=== PATIENT | male | born 1955 | race Caucasian/White ===

== ENCOUNTER 2017-08-20 08:51 | Inpatient (IN) | payer MEDICARE, OTHER ==
[~2017-08-20] VITALS: Ht 172.7 cm; Wt 121.0 kg
[~2017-08-20 08:51] MED LIST: AMLO5 PO; AMLODIPINE; ASPI325EC PO; ASPI81CH PO; ATEN25 PO; ATEN50; ATOR80 PO; Amiodarone HCl200 MG PO; BRILINTA90 MG PO; BYSTOLIC PO; Bactrim Ds Tab1 EACH PO; CENTRUM SILVER1 EAC2 PO; CEPH500 PO; CLOP75 PO; Crutch1 EACH MISC; DICL25ER; DICL75ER PO; DILT180 PO; ERYT.5TO RIGHTEYE; FISH1000 PO; FURO40 PO; Flomax0.4 MG PO; HYDACE5 PO; Keflex500 MG PO; LINZESS145 MCG PO; LISINOPRIL; LOSA50 PO; METO100ER PO; METO50 PO; METO50ER PO; METPRE4DP PO; MUPIROCIN1 GM TOP; Micro-K10 MEQ; NAPR500 PO; NITR.4SL SL; Naprosyn500 MG PO; Norco 5-325 Ta1 EACH PO; OLME40 PO; ONDA4 PO; OXYACE5T PO; OXYC1TAB11 PO; POTCHL10ER PO; Percocet 10-321 EACH PO; Percocet 5-3251 EACH PO; Prednisone20 MG PO; Robaxin500 MG PO; SPIR25 PO; SULTRIDS PO; TESTONE CI200 MG/1 M IM; TICA90TA; TOBR.3OPSO OP; TRIBENZOR 40-51 EAC1 PO; TRIHYD253B PO; VALS80 PO; VALSARTAN; Valium5 MG PO; WARF2.5 PO; XARELTO15 MG PO; XARELTO20 MG PO; Zofran Odt4 MG PO
[2017-08-20] MEDS ORDERED: GABA400 PO (09:03)
[2017-08-20] MEDS ORDERED: DILT120 PO (09:04)
[2017-08-20] MEDS ORDERED: HYDR10 PO (09:06)
[2017-08-20] MEDS ORDERED: CLOP75 PO (09:07)
[2017-08-20 09:14] LABS: BASOPHILS ABSOLUTE AUTO 0.03 K/mm3 (0.00-0.23); BASOPHILS PERCENT AUTO 0 % (0-2); EOSINOPHILS ABSOLUTE AUTO 0.04 K/mm3 (0.00-0.68); EOSINOPHILS PERCENT AUTO 0 % (0-6); Hematocrit 29.8 % (37.0-53.0); Hemoglobin 9.1 g/dL (13.5-17.5); IMMATURE GRAN ABSOLUTE AUTO 0.53 K/mm3 (0.00-0.10); IMMATURE GRAN PERCENT AUTO 5 % (0-1); LYMPHOCYTES ABSOLUTE AUTO 0.69 K/mm3 (0.84-5.20); LYMPHOCYTES PERCENT AUTO 6 % (21-46); MONOCYTES ABSOLUTE AUTO 0.94 K/mm3 (0.16-1.47); MONOCYTES PERCENT AUTO 8 % (4-13); Mean Corpuscular HGB 30.2 pg (26.0-34.0); Mean Corpuscular HGB Conc 30.5 g/dL (31.5-36.5); Mean Corpuscular Volume 99 fL (80-100); Mean Platelet Volume 11.5 fL (9.1-12.4); NEUTROPHILS ABSOLUTE AUTO 9.07 K/mm3 (1.96-9.15); NEUTROPHILS PERCENT AUTO 80 % (41-73); NRBC ABSOLUTE 0.25 K/mm3 (0.00-0.02); NRBC Auto 2.2 /100 WBC (0.0-0.2); Platelet Count 241 K/mm3 (150-400); RDW Coefficient Variation 16.9 % (11.7-14.2); RDW Standard Deviation 60.8 fL (35.1-46.3); Red Blood Cell Count 3.01 M/mm3 (4.30-5.90)
[2017-08-20 09:31] LABS: Anion Gap 8 mmol/L (6-16); Blood Urea Nitrogen 31 mg/dL (8-24); Bun/Creatinine Ratio 25.4 (12.0-20.0); CO2, Blood 27 mmol/L (21-32); Calcium, Blood 8.1 mg/dL (8.5-10.1); Chloride, Blood 105 mmol/L (98-108); Creatinine, Blood 1.22 mg/dL (0.60-1.20); Glomerular Filtration Rate >60 (60-); Glucose, Blood 231 mg/dL (70-99); Potassium, Blood 4.6 mmol/L (3.5-5.5); Sodium, Blood 140 mmol/L (136-145)
[2017-08-20 16:46] LABS: Hematocrit 27.8 % (37.0-53.0); Hemoglobin 8.6 g/dL (13.5-17.5)
[2017-08-20 18:12] LABS: Source, Urine Catheter
[2017-08-20 18:17] LABS: Appearance, Urine Clear (Clear); Bilirubin, Urine Neg (Neg); Blood, Urine Neg (Neg); Color, Urine Yellow (P-Yellow); Glucose Qualitative, Urine Neg (Neg); Ketones, Urine Neg (Neg); Leukocyte Esterase, Urine Neg (Neg); Nitrite, Urine Neg (Neg); Protein, Urine Neg (Neg); Urobilinogen, Urine NORM (Normal)
[2017-08-20 22:33] LABS: Hematocrit 26.3 % (37.0-53.0); Hemoglobin 8.1 g/dL (13.5-17.5)
[2017-08-21 05:19] LABS: BASOPHILS ABSOLUTE AUTO 0.02 K/mm3 (0.00-0.23); BASOPHILS PERCENT AUTO 0 % (0-2); EOSINOPHILS ABSOLUTE AUTO 0.04 K/mm3 (0.00-0.68); EOSINOPHILS PERCENT AUTO 0 % (0-6); Hematocrit 23.5 % (37.0-53.0); Hemoglobin 7.3 g/dL (13.5-17.5); IMMATURE GRAN ABSOLUTE AUTO 0.52 K/mm3 (0.00-0.10); IMMATURE GRAN PERCENT AUTO 4 % (0-1); LYMPHOCYTES ABSOLUTE AUTO 0.71 K/mm3 (0.84-5.20); LYMPHOCYTES PERCENT AUTO 6 % (21-46); MONOCYTES ABSOLUTE AUTO 1.21 K/mm3 (0.16-1.47); MONOCYTES PERCENT AUTO 10 % (4-13); Mean Corpuscular HGB 29.9 pg (26.0-34.0); Mean Corpuscular HGB Conc 31.1 g/dL (31.5-36.5); Mean Platelet Volume 11.3 fL (9.1-12.4); NEUTROPHILS ABSOLUTE AUTO 9.54 K/mm3 (1.96-9.15); NEUTROPHILS PERCENT AUTO 79 % (41-73); NRBC ABSOLUTE 0.47 K/mm3 (0.00-0.02); NRBC Auto 3.9 /100 WBC (0.0-0.2); Platelet Count 209 K/mm3 (150-400); RDW Standard Deviation 59.3 fL (35.1-46.3); Red Blood Cell Count 2.44 M/mm3 (4.30-5.90); White Blood Cell Count 12.04 K/mm3 (4.00-11.30)
[2017-08-21 05:20] LABS: Mean Corpuscular Volume 96 fL (80-100)
[2017-08-21 05:34] LABS: International Normalized Ratio 1.13; Prothrombin Time Results 11.8 Sec (9.7-11.5)
[2017-08-21 05:39] LABS: Alanine Aminotransfer (ALT/SGP 38 U/L (12-78); Albumin, Blood 2.5 g/dL (3.4-5.0); Albumin/Globulin Ratio 0.9 (0.8-1.8); Alk Phos 71 U/L (50-136); Anion Gap 10 mmol/L (6-16); Aspartate Aminotrans (AST/SGOT 19 U/L (12-37); Bilirubin, Total 0.6 mg/dL (0.1-1.0); Blood Urea Nitrogen 28 mg/dL (8-24); Bun/Creatinine Ratio 25.5 (12.0-20.0); CO2, Blood 25 mmol/L (21-32); Calcium, Blood 8.2 mg/dL (8.5-10.1); Chloride, Blood 105 mmol/L (98-108); Globulin, Blood 2.7 g/dL (2.2-4.0); Glomerular Filtration Rate >60 (60-); Glucose, Blood 181 mg/dL (70-99); Potassium, Blood 4.9 mmol/L (3.5-5.5); Sodium, Blood 140 mmol/L (136-145); Total Protein, Blood 5.2 g/dL (6.4-8.2)
[2017-08-21 10:32] LABS: Hematocrit 24.3 % (37.0-53.0); Hemoglobin 7.4 g/dL (13.5-17.5)
[2017-08-22 10:48] LABS: Hematocrit 21.3 % (37.0-53.0); Hemoglobin 6.5 g/dL (13.5-17.5); Mean Corpuscular HGB 29.5 pg (26.0-34.0); Mean Corpuscular HGB Conc 30.5 g/dL (31.5-36.5); Mean Corpuscular Volume 97 fL (80-100); Mean Platelet Volume 11.2 fL (9.1-12.4); NRBC ABSOLUTE 0.38 K/mm3 (0.00-0.02); NRBC Auto 3.7 /100 WBC (0.0-0.2); Platelet Count 199 K/mm3 (150-400); RDW Coefficient Variation 17.2 % (11.7-14.2); RDW Standard Deviation 59.1 fL (35.1-46.3); White Blood Cell Count 10.36 K/mm3 (4.00-11.30)
[2017-08-22 11:17] LABS: BASOPHILS PERCENT MAN 0 % (0-2); EOSINOPHILS PERCENT MAN 0 % (0-6); LYMPHOCYTES ABSOLUTE MAN 0.51 K/mm3 (0.84-5.20); LYMPHOCYTES PERCENT MAN 5 % (21-46); METAMYELOCYTE PERCENT MAN 1 % (0-0); MONOCYTES ABSOLUTE MAN 0.62 K/mm3 (0.16-1.47); MONOCYTES PERCENT MAN 6 % (4-13); MYELOCYTE PERCENT MAN 1 % (0-0); NEUTROPHILS ABSOLUTE MAN 9.01 K/mm3 (1.96-9.15); SEG NEUTROPHILS PERCENT MAN 87 % (41-73); TOTAL CELLS COUNTED 100
[2017-08-22 17:53] LABS: Hematocrit 22.3 % (37.0-53.0); Hemoglobin 6.8 g/dL (13.5-17.5); Mean Corpuscular HGB 29.3 pg (26.0-34.0); Mean Corpuscular HGB Conc 30.5 g/dL (31.5-36.5); Mean Corpuscular Volume 96 fL (80-100); Mean Platelet Volume 11.4 fL (9.1-12.4); NRBC ABSOLUTE 0.36 K/mm3 (0.00-0.02); NRBC Auto 2.9 /100 WBC (0.0-0.2); Platelet Count 191 K/mm3 (150-400); RDW Coefficient Variation 18.1 % (11.7-14.2); Red Blood Cell Count 2.32 M/mm3 (4.30-5.90)
[2017-08-22 18:47] LABS: BASOPHILS PERCENT MAN 0 % (0-2); EOSINOPHILS PERCENT MAN 0 % (0-6); LYMPHOCYTES ABSOLUTE MAN 0.37 K/mm3 (0.84-5.20); LYMPHOCYTES PERCENT MAN 3 % (21-46); METAMYELOCYTE ABSOLUTE MAN 0.12 K/mm3 (0.00-0.00); METAMYELOCYTE PERCENT MAN 1 % (0-0); MONOCYTES ABSOLUTE MAN 0.37 K/mm3 (0.16-1.47); MONOCYTES PERCENT MAN 3 % (4-13); NEUTROPHILS ABSOLUTE MAN 11.53 K/mm3 (1.96-9.15); SEG NEUTROPHILS PERCENT MAN 93 % (41-73); TOTAL CELLS COUNTED 100
[2017-08-23 04:17] LABS: Hematocrit 23.3 % (37.0-53.0); Hemoglobin 7.4 g/dL (13.5-17.5); Mean Corpuscular HGB 29.8 pg (26.0-34.0); Mean Corpuscular HGB Conc 31.8 g/dL (31.5-36.5); Mean Corpuscular Volume 94 fL (80-100); Mean Platelet Volume 11.4 fL (9.1-12.4); NRBC Auto 4.7 /100 WBC (0.0-0.2); Platelet Count 182 K/mm3 (150-400); RDW Coefficient Variation 18.4 % (11.7-14.2); RDW Standard Deviation 61.2 fL (35.1-46.3); Red Blood Cell Count 2.48 M/mm3 (4.30-5.90); White Blood Cell Count 10.61 K/mm3 (4.00-11.30)
[2017-08-23 04:45] LABS: BAND PERCENT MAN 4 % (0-8); BASOPHILS PERCENT MAN 0 % (0-2); EOSINOPHILS PERCENT MAN 0 % (0-6); LYMPHOCYTES ABSOLUTE MAN 0.31 K/mm3 (0.84-5.20); LYMPHOCYTES PERCENT MAN 3 % (21-46); METAMYELOCYTE PERCENT MAN 1 % (0-0); MONOCYTES ABSOLUTE MAN 0.21 K/mm3 (0.16-1.47); MONOCYTES PERCENT MAN 2 % (4-13); MYELOCYTE ABSOLUTE MAN 0.21 K/mm3 (0.00-0.00); MYELOCYTE PERCENT MAN 2 % (0-0); NEUTROPHILS ABSOLUTE MAN 9.76 K/mm3 (1.96-9.15); SEG NEUTROPHILS PERCENT MAN 88 % (41-73); TOTAL CELLS COUNTED 100
[2017-08-23 15:19] LABS: Hematocrit 26.3 % (37.0-53.0); Hemoglobin 8.3 g/dL (13.5-17.5)
[2017-08-24 08:20] LABS: Hematocrit 26.9 % (37.0-53.0); Hemoglobin 8.3 g/dL (13.5-17.5); Mean Corpuscular HGB 28.9 pg (26.0-34.0); Mean Corpuscular HGB Conc 30.9 g/dL (31.5-36.5); Mean Corpuscular Volume 94 fL (80-100); Mean Platelet Volume 11.3 fL (9.1-12.4); NRBC ABSOLUTE 0.49 K/mm3 (0.00-0.02); NRBC Auto 5.7 /100 WBC (0.0-0.2); Platelet Count 211 K/mm3 (150-400); RDW Standard Deviation 61.8 fL (35.1-46.3); Red Blood Cell Count 2.87 M/mm3 (4.30-5.90); White Blood Cell Count 8.66 K/mm3 (4.00-11.30)
[2017-08-24 08:56] LABS: BASOPHILS PERCENT MAN 0 % (0-2); EOSINOPHILS ABSOLUTE MAN 0.08 K/mm3 (0.00-0.68); EOSINOPHILS PERCENT MAN 1 % (0-6); LYMPHOCYTES ABSOLUTE MAN 0.43 K/mm3 (0.84-5.20); LYMPHOCYTES PERCENT MAN 5 % (21-46); METAMYELOCYTE ABSOLUTE MAN 0.25 K/mm3 (0.00-0.00); METAMYELOCYTE PERCENT MAN 3 % (0-0); MONOCYTES ABSOLUTE MAN 0.95 K/mm3 (0.16-1.47); MONOCYTES PERCENT MAN 11 % (4-13); NEUTROPHILS ABSOLUTE MAN 6.92 K/mm3 (1.96-9.15); SEG NEUTROPHILS PERCENT MAN 80 % (41-73); TOTAL CELLS COUNTED 100
[2017-08-25 04:21] LABS: BASOPHILS ABSOLUTE AUTO 0.03 K/mm3 (0.00-0.23); BASOPHILS PERCENT AUTO 0 % (0-2); EOSINOPHILS ABSOLUTE AUTO 0.05 K/mm3 (0.00-0.68); EOSINOPHILS PERCENT AUTO 1 % (0-6); Hematocrit 27.3 % (37.0-53.0); Hemoglobin 8.5 g/dL (13.5-17.5); IMMATURE GRAN ABSOLUTE AUTO 0.47 K/mm3 (0.00-0.10); IMMATURE GRAN PERCENT AUTO 6 % (0-1); LYMPHOCYTES ABSOLUTE AUTO 0.54 K/mm3 (0.84-5.20); LYMPHOCYTES PERCENT AUTO 7 % (21-46); MONOCYTES ABSOLUTE AUTO 0.76 K/mm3 (0.16-1.47); MONOCYTES PERCENT AUTO 9 % (4-13); Mean Corpuscular HGB 29.7 pg (26.0-34.0); Mean Corpuscular HGB Conc 31.1 g/dL (31.5-36.5); Mean Corpuscular Volume 96 fL (80-100); NEUTROPHILS ABSOLUTE AUTO 6.38 K/mm3 (1.96-9.15); NEUTROPHILS PERCENT AUTO 78 % (41-73); NRBC ABSOLUTE 0.66 K/mm3 (0.00-0.02); Platelet Count 221 K/mm3 (150-400); RDW Coefficient Variation 18.6 % (11.7-14.2); RDW Standard Deviation 61.2 fL (35.1-46.3); Red Blood Cell Count 2.86 M/mm3 (4.30-5.90); White Blood Cell Count 8.23 K/mm3 (4.00-11.30)
[2017-08-25 04:37] LABS: Anion Gap 8 mmol/L (6-16); Blood Urea Nitrogen 21 mg/dL (8-24); Bun/Creatinine Ratio 24.2 (12.0-20.0); CO2, Blood 27 mmol/L (21-32); Calcium, Blood 8.2 mg/dL (8.5-10.1); Chloride, Blood 103 mmol/L (98-108); Creatinine, Blood 0.87 mg/dL (0.60-1.20); Glomerular Filtration Rate >60 (60-); Glucose, Blood 175 mg/dL (70-99); Potassium, Blood 4.8 mmol/L (3.5-5.5); Sodium, Blood 138 mmol/L (136-145)
[2017-08-25 04:52] LABS: BAND PERCENT MAN 3 % (0-8); BASOPHILS PERCENT MAN 0 % (0-2); EOSINOPHILS PERCENT MAN 0 % (0-6); LYMPHOCYTES ABSOLUTE MAN 1.15 K/mm3 (0.84-5.20); LYMPHOCYTES PERCENT MAN 14 % (21-46); METAMYELOCYTE ABSOLUTE MAN 0.24 K/mm3 (0.00-0.00); METAMYELOCYTE PERCENT MAN 3 % (0-0); MONOCYTES ABSOLUTE MAN 0.41 K/mm3 (0.16-1.47); MONOCYTES PERCENT MAN 5 % (4-13); NEUTROPHILS ABSOLUTE MAN 6.41 K/mm3 (1.96-9.15); SEG NEUTROPHILS PERCENT MAN 75 % (41-73); TOTAL CELLS COUNTED 100
[2017-08-26 05:22] LABS: Hematocrit 29.3 % (37.0-53.0); Hemoglobin 9.1 g/dL (13.5-17.5)
[2017-08-26 05:40] LABS: Anion Gap 9 mmol/L (6-16); Blood Urea Nitrogen 23 mg/dL (8-24); Bun/Creatinine Ratio 20.9 (12.0-20.0); CO2, Blood 29 mmol/L (21-32); Calcium, Blood 8.6 mg/dL (8.5-10.1); Chloride, Blood 101 mmol/L (98-108); Glomerular Filtration Rate >60 (60-); Glucose, Blood 153 mg/dL (70-99); Potassium, Blood 4.6 mmol/L (3.5-5.5); Sodium, Blood 139 mmol/L (136-145)
[2017-08-27 05:06] LABS: Hematocrit 29.1 % (37.0-53.0); Hemoglobin 8.8 g/dL (13.5-17.5); Mean Corpuscular HGB 29.3 pg (26.0-34.0); Mean Corpuscular HGB Conc 30.2 g/dL (31.5-36.5); Mean Corpuscular Volume 97 fL (80-100); Mean Platelet Volume 11.2 fL (9.1-12.4); NRBC ABSOLUTE 0.64 K/mm3 (0.00-0.02); NRBC Auto 6.3 /100 WBC (0.0-0.2); Platelet Count 263 K/mm3 (150-400); RDW Coefficient Variation 18.4 % (11.7-14.2); RDW Standard Deviation 60.3 fL (35.1-46.3); White Blood Cell Count 10.16 K/mm3 (4.00-11.30)
[2017-08-27 05:28] LABS: Anion Gap 7 mmol/L (6-16); Blood Urea Nitrogen 24 mg/dL (8-24); Bun/Creatinine Ratio 23.8 (12.0-20.0); CO2, Blood 30 mmol/L (21-32); Calcium, Blood 8.7 mg/dL (8.5-10.1); Chloride, Blood 100 mmol/L (98-108); Creatinine, Blood 1.01 mg/dL (0.60-1.20); Glomerular Filtration Rate >60 (60-); Glucose, Blood 150 mg/dL (70-99); Sodium, Blood 137 mmol/L (136-145)
[2017-08-27 06:00] LABS: BAND PERCENT MAN 1 % (0-8); BASOPHILS PERCENT MAN 0 % (0-2); EOSINOPHILS PERCENT MAN 1 % (0-6); LYMPHOCYTES PERCENT MAN 5 % (21-46); METAMYELOCYTE PERCENT MAN 1 % (0-0); MONOCYTES ABSOLUTE MAN 0.91 K/mm3 (0.16-1.47); MONOCYTES PERCENT MAN 9 % (4-13); MYELOCYTE PERCENT MAN 3 % (0-0); NEUTROPHILS ABSOLUTE MAN 8.22 K/mm3 (1.96-9.15); SEG NEUTROPHILS PERCENT MAN 80 % (41-73); TOTAL CELLS COUNTED 100
[2017-08-27] MEDS ORDERED: FURO80 PO (13:05)
[2017-08-27] MEDS ORDERED: CLOP75 PO (13:05)
[2017-08-27] MEDS ORDERED: INSULANPEN SC (13:06)
[2017-08-27] MEDS ORDERED: METF500C PO (13:07)
[2017-08-27] MEDS ORDERED: BISA10S PR (13:08)
[2017-08-27] MEDS ORDERED: Micro-K10 MEQ PO (13:08)
[2017-08-27] MEDS ORDERED: ACET325 PO (13:09)
[2017-08-27] MEDS ORDERED: DOCU100 PO (13:10)
[2017-08-27] MEDS ORDERED: ENOX40I SC (13:11)
[2017-08-27] MEDS ORDERED: Lorazepam2 MG/1 ML IV (13:12)
[2017-08-27] MEDS ORDERED: Novolog Fl100 UNIT/1 SC (13:14)
[2017-08-27] MEDS ORDERED: PANT40 PO (13:15)
[2017-08-27] MEDS ORDERED: ONDA4SO PO (13:15)
[2017-08-27] MEDS ORDERED: Percocet 5-3251 EACH PO (13:16)
[2017-08-27] MEDS ORDERED: GAVILAX17 GM PO (13:39)
[2017-08-27] MEDS ORDERED: SENN187 PO (13:40)
[2017-08-27] MEDS ORDERED: TRAM50 PO (13:41)
== END 2017-08-27 16:00 | DRG 605 ==
LOC: ER 08:51 → MEDS 08:52 → PCU 14:13 → MEDS 14:14 → PCU 16:15 → MEDS 16:15 → PCU 08-22 14:02 → MEDS 08-25 15:13 → ENPENDDIS 08-27 12:33 → MEDS 08-27 16:00
PROVIDERS: Emergency Medicine; Family Medicine; Orthopaedic Surgery
PROC: 30233N1 Transfusion of Nonautologous Red Blood Cells into Peripheral Vein, Percutaneous Approach (ICD-10-PCS; 2017-08-22)
PROC: 0Y9100Z Drainage of Left Buttock with Drainage Device, Open Approach (ICD-10-PCS; principal; 2017-08-27)
DX: S30.0XXA Contusion of lower back and pelvis, initial encounter (principal); D62 Acute posthemorrhagic anemia; E11.9 Type 2 diabetes mellitus without complications; I48.91 Unspecified atrial fibrillation; I25.10 Atherosclerotic heart disease of native coronary artery without angina pectoris; R60.9 Edema, unspecified; I10 Essential (primary) hypertension
CPT/HCPCS: 36415; 36430; 71045; 72192; 76882; 80048; 80053; 81003; 82947; 85014; 85018; 85025; 85610; 85730; 86850; 86900; 86901; 86923; 93922; 94660; 94762; 96374; 96375; 96376; 97110; 97116; 97162; 97166; 97530; 97535; 99285; G8978; G8979; G8987; G8988; J0690; J1100; J1650; J1815; J1885; J2270; J2405; J2710; J3010; J7030; J7040; P9016

== ENCOUNTER 2017-09-16 11:30 | Observation (INO) | payer MEDICARE, OTHER ==
[~2017-09-16] VITALS: Ht 172.7 cm; Wt 116.4 kg
[~2017-09-16 11:30] MED LIST changes: +ACET325 PO; +BISA10S PR; +DILT120 PO; +DOCU100 PO; +ENOX40I SC; +FURO80 PO; +GABA400 PO; +GAVILAX17 GM PO; +HYDR10 PO; +INSULANPEN SC; +Lorazepam2 MG/1 ML IV; +METF500C PO; +Micro-K10 MEQ PO; +Novolog Fl100 UNIT/1 SC; +ONDA4SO PO; +PANT40 PO; +SENN187 PO; +TRAM50 PO
[2017-09-16 13:29] LABS: BASOPHILS ABSOLUTE AUTO 0.04 K/mm3 (0.00-0.23); BASOPHILS PERCENT AUTO 0 % (0-2); EOSINOPHILS ABSOLUTE AUTO 0.09 K/mm3 (0.00-0.68); EOSINOPHILS PERCENT AUTO 1 % (0-6); Hematocrit 37.6 % (37.0-53.0); Hemoglobin 11.3 g/dL (13.5-17.5); IMMATURE GRAN ABSOLUTE AUTO 0.22 K/mm3 (0.00-0.10); IMMATURE GRAN PERCENT AUTO 2 % (0-1); LYMPHOCYTES ABSOLUTE AUTO 0.51 K/mm3 (0.84-5.20); LYMPHOCYTES PERCENT AUTO 5 % (21-46); MONOCYTES ABSOLUTE AUTO 0.88 K/mm3 (0.16-1.47); MONOCYTES PERCENT AUTO 9 % (4-13); Mean Corpuscular HGB 28.7 pg (26.0-34.0); Mean Corpuscular HGB Conc 30.1 g/dL (31.5-36.5); Mean Corpuscular Volume 95 fL (80-100); Mean Platelet Volume 11.3 fL (9.1-12.4); NEUTROPHILS ABSOLUTE AUTO 8.09 K/mm3 (1.96-9.15); NEUTROPHILS PERCENT AUTO 82 % (41-73); NRBC ABSOLUTE 0.04 K/mm3 (0.00-0.02); NRBC Auto 0.4 /100 WBC (0.0-0.2); Platelet Count 333 K/mm3 (150-400); RDW Standard Deviation 59.3 fL (35.1-46.3); Red Blood Cell Count 3.94 M/mm3 (4.30-5.90); White Blood Cell Count 9.83 K/mm3 (4.00-11.30)
[2017-09-16 13:43] LABS: Alanine Aminotransfer (ALT/SGP 61 U/L (12-78); Albumin, Blood 3.3 g/dL (3.4-5.0); Albumin/Globulin Ratio 0.9 (0.8-1.8); Alk Phos 112 U/L (50-136); Anion Gap 9 mmol/L (6-16); Aspartate Aminotrans (AST/SGOT 25 U/L (12-37); Bilirubin, Total 0.4 mg/dL (0.1-1.0); Blood Urea Nitrogen 24 mg/dL (8-24); Bun/Creatinine Ratio 23.8 (12.0-20.0); CO2, Blood 30 mmol/L (21-32); Calcium, Blood 9.1 mg/dL (8.5-10.1); Chloride, Blood 100 mmol/L (98-108); Creatinine, Blood 1.01 mg/dL (0.60-1.20); Globulin, Blood 3.6 g/dL (2.2-4.0); Glomerular Filtration Rate >60 (60-); Glucose, Blood 210 mg/dL (70-99); Potassium, Blood 4.5 mmol/L (3.5-5.5); Sodium, Blood 139 mmol/L (136-145); Total Protein, Blood 6.9 g/dL (6.4-8.2)
[2017-09-16] MEDS ORDERED: XARELTO10 MG PO (14:27)
[2017-09-16] MEDS ORDERED: POTCHL10ER PO (14:36)
[2017-09-16 21:57] LABS: Source, Urine Catheter
[2017-09-16 21:59] LABS: Bilirubin, Urine Neg (Neg); Blood, Urine 5+ (Neg); Glucose Qualitative, Urine 3+ (Neg); Ketones, Urine Neg (Neg); Leukocyte Esterase, Urine 3+ (Neg); Nitrite, Urine Neg (Neg); Protein, Urine 1+ (Neg); Urobilinogen, Urine NORM (Normal)
[2017-09-16 22:07] LABS: Appearance, Urine Cloudy (Clear); Color, Urine Yellow (P-Yellow)
[2017-09-16 22:08] LABS: Bacteria Rare /hpf; Red Blood Cells, Urine TNTC /hpf (0-2); Squamous Epithelial Cells Not Seen /hpf (Few); White Blood Cells, Urine 25-50 /hpf (0-5)
[2017-09-17 05:16] LABS: BASOPHILS ABSOLUTE AUTO 0.03 K/mm3 (0.00-0.23); BASOPHILS PERCENT AUTO 0 % (0-2); EOSINOPHILS PERCENT AUTO 1 % (0-6); Hematocrit 36.3 % (37.0-53.0); Hemoglobin 10.4 g/dL (13.5-17.5); IMMATURE GRAN ABSOLUTE AUTO 0.17 K/mm3 (0.00-0.10); IMMATURE GRAN PERCENT AUTO 2 % (0-1); LYMPHOCYTES ABSOLUTE AUTO 0.62 K/mm3 (0.84-5.20); LYMPHOCYTES PERCENT AUTO 8 % (21-46); MONOCYTES ABSOLUTE AUTO 0.87 K/mm3 (0.16-1.47); MONOCYTES PERCENT AUTO 11 % (4-13); Mean Corpuscular HGB 27.7 pg (26.0-34.0); Mean Corpuscular HGB Conc 28.7 g/dL (31.5-36.5); Mean Corpuscular Volume 97 fL (80-100); Mean Platelet Volume 11.1 fL (9.1-12.4); NEUTROPHILS ABSOLUTE AUTO 6.39 K/mm3 (1.96-9.15); NEUTROPHILS PERCENT AUTO 78 % (41-73); NRBC ABSOLUTE 0.02 K/mm3 (0.00-0.02); NRBC Auto 0.2 /100 WBC (0.0-0.2); Platelet Count 307 K/mm3 (150-400); RDW Coefficient Variation 17.1 % (11.7-14.2); RDW Standard Deviation 60.5 fL (35.1-46.3); Red Blood Cell Count 3.75 M/mm3 (4.30-5.90); White Blood Cell Count 8.18 K/mm3 (4.00-11.30)
[2017-09-17 05:27] LABS: International Normalized Ratio 1.29; Prothrombin Time Results 13.1 Sec (9.7-11.5)
[2017-09-17 09:43] LABS: Anion Gap 7 mmol/L (6-16); Blood Urea Nitrogen 21 mg/dL (8-24); Bun/Creatinine Ratio 22.4 (12.0-20.0); CO2, Blood 35 mmol/L (21-32); Chloride, Blood 100 mmol/L (98-108); Creatinine, Blood 0.94 mg/dL (0.60-1.20); Glomerular Filtration Rate >60 (60-); Glucose, Blood 174 mg/dL (70-99); Potassium, Blood 4.6 mmol/L (3.5-5.5); Sodium, Blood 142 mmol/L (136-145)
[2017-09-18 09:35] LABS: Anion Gap 8 mmol/L (6-16); Blood Urea Nitrogen 23 mg/dL (8-24); Bun/Creatinine Ratio 21.7 (12.0-20.0); CO2, Blood 32 mmol/L (21-32); Calcium, Blood 8.9 mg/dL (8.5-10.1); Chloride, Blood 97 mmol/L (98-108); Creatinine, Blood 1.06 mg/dL (0.60-1.20); Glomerular Filtration Rate >60 (60-); Glucose, Blood 206 mg/dL (70-99); Potassium, Blood 4.6 mmol/L (3.5-5.5); Sodium, Blood 137 mmol/L (136-145)
[2017-09-19 04:50] LABS: BASOPHILS ABSOLUTE AUTO 0.05 K/mm3 (0.00-0.23); BASOPHILS PERCENT AUTO 1 % (0-2); EOSINOPHILS ABSOLUTE AUTO 0.09 K/mm3 (0.00-0.68); EOSINOPHILS PERCENT AUTO 1 % (0-6); Hematocrit 35.5 % (37.0-53.0); Hemoglobin 10.7 g/dL (13.5-17.5); IMMATURE GRAN ABSOLUTE AUTO 0.18 K/mm3 (0.00-0.10); IMMATURE GRAN PERCENT AUTO 2 % (0-1); LYMPHOCYTES ABSOLUTE AUTO 0.54 K/mm3 (0.84-5.20); LYMPHOCYTES PERCENT AUTO 7 % (21-46); MONOCYTES ABSOLUTE AUTO 0.86 K/mm3 (0.16-1.47); MONOCYTES PERCENT AUTO 11 % (4-13); Mean Corpuscular HGB 28.8 pg (26.0-34.0); Mean Corpuscular HGB Conc 30.1 g/dL (31.5-36.5); Mean Corpuscular Volume 96 fL (80-100); NEUTROPHILS ABSOLUTE AUTO 6.35 K/mm3 (1.96-9.15); NEUTROPHILS PERCENT AUTO 79 % (41-73); NRBC ABSOLUTE 0.03 K/mm3 (0.00-0.02); NRBC Auto 0.4 /100 WBC (0.0-0.2); Platelet Count 287 K/mm3 (150-400); RDW Coefficient Variation 16.9 % (11.7-14.2); RDW Standard Deviation 58.5 fL (35.1-46.3); Red Blood Cell Count 3.71 M/mm3 (4.30-5.90); White Blood Cell Count 8.07 K/mm3 (4.00-11.30)
[2017-09-19 05:05] LABS: Anion Gap 8 mmol/L (6-16); Blood Urea Nitrogen 27 mg/dL (8-24); Bun/Creatinine Ratio 22.3 (12.0-20.0); CO2, Blood 33 mmol/L (21-32); Calcium, Blood 8.7 mg/dL (8.5-10.1); Chloride, Blood 98 mmol/L (98-108); Creatinine, Blood 1.21 mg/dL (0.60-1.20); Glomerular Filtration Rate >60 (60-); Glucose, Blood 228 mg/dL (70-99); Potassium, Blood 4.1 mmol/L (3.5-5.5); Sodium, Blood 139 mmol/L (136-145)
[2017-09-20 04:58] LABS: Anion Gap 7 mmol/L (6-16); Blood Urea Nitrogen 30 mg/dL (8-24); Bun/Creatinine Ratio 25.9 (12.0-20.0); CO2, Blood 34 mmol/L (21-32); Calcium, Blood 8.6 mg/dL (8.5-10.1); Chloride, Blood 99 mmol/L (98-108); Creatinine, Blood 1.16 mg/dL (0.60-1.20); Glomerular Filtration Rate >60 (60-); Glucose, Blood 233 mg/dL (70-99); Potassium, Blood 4.3 mmol/L (3.5-5.5); Sodium, Blood 140 mmol/L (136-145)
[2017-09-21 02:27] LABS: Hematocrit 36.4 % (37.0-53.0); Hemoglobin 10.9 g/dL (13.5-17.5)
[2017-09-21 02:42] LABS: Bun/Creatinine Ratio 20.1 (12.0-20.0); Calcium, Blood 8.5 mg/dL (8.5-10.1); Creatinine, Blood 1.49 mg/dL (0.60-1.20); Potassium, Blood 4.1 mmol/L (3.5-5.5)
[2017-09-22 04:56] LABS: Hematocrit 36.9 % (37.0-53.0)
[2017-09-22 05:36] LABS: Anion Gap 7 mmol/L (6-16); Blood Urea Nitrogen 31 mg/dL (8-24); Bun/Creatinine Ratio 27.4 (12.0-20.0); CO2, Blood 32 mmol/L (21-32); Calcium, Blood 8.8 mg/dL (8.5-10.1); Chloride, Blood 101 mmol/L (98-108); Creatinine, Blood 1.13 mg/dL (0.60-1.20); Glomerular Filtration Rate >60 (60-); Glucose, Blood 165 mg/dL (70-99); Potassium, Blood 4.4 mmol/L (3.5-5.5); Sodium, Blood 140 mmol/L (136-145)
[2017-09-23 04:41] LABS: Anion Gap 7 mmol/L (6-16); Blood Urea Nitrogen 31 mg/dL (8-24); Bun/Creatinine Ratio 24.6 (12.0-20.0); CO2, Blood 32 mmol/L (21-32); Calcium, Blood 8.5 mg/dL (8.5-10.1); Chloride, Blood 102 mmol/L (98-108); Creatinine, Blood 1.26 mg/dL (0.60-1.20); Glomerular Filtration Rate >60 (60-); Glucose, Blood 183 mg/dL (70-99); Potassium, Blood 4.5 mmol/L (3.5-5.5); Sodium, Blood 141 mmol/L (136-145)
[2017-09-24 04:10] LABS: Anion Gap 7 mmol/L (6-16); Blood Urea Nitrogen 27 mg/dL (8-24); Bun/Creatinine Ratio 24.3 (12.0-20.0); CO2, Blood 30 mmol/L (21-32); Calcium, Blood 8.5 mg/dL (8.5-10.1); Chloride, Blood 103 mmol/L (98-108); Creatinine, Blood 1.11 mg/dL (0.60-1.20); Glomerular Filtration Rate >60 (60-); Glucose, Blood 165 mg/dL (70-99); Potassium, Blood 4.7 mmol/L (3.5-5.5); Sodium, Blood 140 mmol/L (136-145)
[2017-09-25] MEDS ORDERED: ASPI81CH PO (09:58)
[2017-09-25] MEDS ORDERED: CEPH500 PO (09:59)
== END 2017-09-25 13:41 | disposition home health service (06) ==
LOC: ER 11:30 → MEDS 11:31 → ER 14:15 → MEDS 14:15 → ENPENDDIS 09-25 08:25 → MEDS 09-25 13:41
PROVIDERS: Family Medicine; Hospitalist; Internal Medicine; Internal Medicine Interventional Cardiology
DX: E11.51 Type 2 diabetes mellitus with diabetic peripheral angiopathy without gangrene (principal); L02.31 Cutaneous abscess of buttock; R60.0 Localized edema; I99.8 Other disorder of circulatory system; N17.9 Acute kidney failure, unspecified; I48.2 Chronic atrial fibrillation; I25.10 Atherosclerotic heart disease of native coronary artery without angina pectoris; M51.36 Other intervertebral disc degeneration, lumbar region; D64.9 Anemia, unspecified; I10 Essential (primary) hypertension; M19.90 Unspecified osteoarthritis, unspecified site; E78.5 Hyperlipidemia, unspecified; E66.9 Obesity, unspecified; Z79.82 Long term (current) use of aspirin; Z79.02 Long term (current) use of antithrombotics/antiplatelets; Z79.899 Other long term (current) drug therapy; Z79.4 Long term (current) use of insulin; Z79.01 Long term (current) use of anticoagulants; Z95.5 Presence of coronary angioplasty implant and graft; Z98.890 Other specified postprocedural states; Z86.711 Personal history of pulmonary embolism; Z68.38 Body mass index [BMI] 38.0-38.9, adult
CPT/HCPCS: 10030; 36415; 51702; 74177; 80048; 80053; 81001; 82947; 83880; 85014; 85018; 85025; 85610; 85730; 87070; 87086; 87205; 93926; 93970; 96374; 97116; 97162; 97530; 99285; G0378; G8978; G8979; J1815; J1940; J3010; Q0163; Q9967

== ENCOUNTER 2017-12-21 07:55 | Day surgery (SDC) | payer MEDICARE, OTHER ==
[~2017-12-21 07:55] MED LIST changes: +XARELTO10 MG PO
== END 2017-12-21 10:25 | disposition home or self-care (01) ==
LOC: WOUND 07:55
PROC: 0HBMXZZ Excision of Right Foot Skin, External Approach (ICD-10-PCS; principal; 2017-12-21)
DX: E11.621 Type 2 diabetes mellitus with foot ulcer (principal); L97.512 Non-pressure chronic ulcer of other part of right foot with fat layer exposed; E11.622 Type 2 diabetes mellitus with other skin ulcer; L97.812 Non-pressure chronic ulcer of other part of right lower leg with fat layer exposed; L97.822 Non-pressure chronic ulcer of other part of left lower leg with fat layer exposed; I10 Essential (primary) hypertension
CPT/HCPCS: G0463

== ENCOUNTER 2018-01-03 08:19 | Day surgery (SDC) | payer MEDICARE, OTHER | END 2018-01-03 22:56 | disposition home or self-care (01) | LOC: WOUND 08:19 | DX: E11.621 Type 2 diabetes mellitus with foot ulcer (principal); L97.512 Non-pressure chronic ulcer of other part of right foot with fat layer exposed; E11.622 Type 2 diabetes mellitus with other skin ulcer; L97.812 Non-pressure chronic ulcer of other part of right lower leg with fat layer exposed; L97.822 Non-pressure chronic ulcer of other part of left lower leg with fat layer exposed; L97.811 Non-pressure chronic ulcer of other part of right lower leg limited to breakdown of skin; E11.51 Type 2 diabetes mellitus with diabetic peripheral angiopathy without gangrene; I10 Essential (primary) hypertension; E78.5 Hyperlipidemia, unspecified; Z95.5 Presence of coronary angioplasty implant and graft; Z79.899 Other long term (current) drug therapy; G47.33 Obstructive sleep apnea (adult) (pediatric); R60.0 Localized edema; Z79.02 Long term (current) use of antithrombotics/antiplatelets; Z79.01 Long term (current) use of anticoagulants ==

== ENCOUNTER 2018-01-05 00:11 | Day surgery (SDC) | payer MEDICARE, OTHER | END 2018-01-05 22:46 | disposition home or self-care (01) | LOC: WOUND 00:11 | PROC: 0HBMXZZ Excision of Right Foot Skin, External Approach (ICD-10-PCS; principal; 2018-01-05) | DX: E11.621 Type 2 diabetes mellitus with foot ulcer (principal); L97.512 Non-pressure chronic ulcer of other part of right foot with fat layer exposed ==

== ENCOUNTER → 2018-03-24 | Outpatient (CLI) | payer MEDICARE, OTHER ==
[~2018-03-24] MED LIST changes: +Cipro500 MG PO
== END | disposition home or self-care (01) ==
LOC: LAB SHORT 11:29 → LAB 11:29
DX: L97.509 Non-pressure chronic ulcer of other part of unspecified foot with unspecified severity (principal)
CPT/HCPCS: 87070; 87075; 87147; 87205

== ENCOUNTER 2018-04-18 14:14 | Emergency (ER) | payer MEDICARE, OTHER ==
[~2018-04-18] VITALS: Ht 172.7 cm; Wt 118.4 kg
[~2018-04-18 14:14] MED LIST changes: -Cipro500 MG PO
[2018-04-18 14:54] LABS: BASOPHILS ABSOLUTE AUTO 0.08 K/mm3 (0.00-0.23); BASOPHILS PERCENT AUTO 1 % (0-2); EOSINOPHILS ABSOLUTE AUTO 0.09 K/mm3 (0.00-0.68); EOSINOPHILS PERCENT AUTO 1 % (0-6); Hematocrit 44.3 % (37.0-53.0); IMMATURE GRAN ABSOLUTE AUTO 0.46 K/mm3 (0.00-0.10); IMMATURE GRAN PERCENT AUTO 5 % (0-1); LYMPHOCYTES ABSOLUTE AUTO 0.97 K/mm3 (0.84-5.20); LYMPHOCYTES PERCENT AUTO 10 % (21-46); MONOCYTES ABSOLUTE AUTO 0.85 K/mm3 (0.16-1.47); MONOCYTES PERCENT AUTO 8 % (4-13); Mean Corpuscular HGB 29.2 pg (26.0-34.0); Mean Corpuscular HGB Conc 31.6 g/dL (31.5-36.5); Mean Corpuscular Volume 92 fL (80-100); Mean Platelet Volume 11.4 fL (9.1-12.4); NEUTROPHILS PERCENT AUTO 76 % (41-73); NRBC ABSOLUTE 0.02 K/mm3 (0.00-0.02); NRBC Auto 0.2 /100 WBC (0.0-0.2); Platelet Count 227 K/mm3 (150-400); RDW Coefficient Variation 17.9 % (11.7-14.2); RDW Standard Deviation 61.2 fL (35.1-46.3); White Blood Cell Count 10.15 K/mm3 (4.00-11.30)
[2018-04-18 15:06] LABS: Alanine Aminotransfer (ALT/SGP 61 U/L (12-78); Albumin, Blood 3.5 g/dL (3.4-5.0); Alk Phos 102 U/L (50-136); Anion Gap 8 mmol/L (6-16); Aspartate Aminotrans (AST/SGOT 23 U/L (12-37); Bilirubin, Total 0.4 mg/dL (0.1-1.0); Blood Urea Nitrogen 35 mg/dL (8-24); Bun/Creatinine Ratio 28.7 (12.0-20.0); CO2, Blood 28 mmol/L (21-32); Calcium, Blood 8.6 mg/dL (8.5-10.1); Chloride, Blood 101 mmol/L (98-108); Creatinine, Blood 1.22 mg/dL (0.60-1.20); Globulin, Blood 3.5 g/dL (2.2-4.0); Glomerular Filtration Rate >60 (60-); Glucose, Blood 212 mg/dL (70-99); Potassium, Blood 4.4 mmol/L (3.5-5.5); Sodium, Blood 137 mmol/L (136-145)
[2018-04-18 17:31] LABS: Source, Urine Clean Catch
[2018-04-18 17:51] LABS: Bilirubin, Urine Neg (Neg); Blood, Urine Neg (Neg); Glucose Qualitative, Urine Neg (Neg); Ketones, Urine Neg (Neg); Leukocyte Esterase, Urine Neg (Neg); Nitrite, Urine Neg (Neg); Protein, Urine Neg (Neg); Urobilinogen, Urine NORM (Normal)
[2018-04-18 18:17] LABS: Appearance, Urine Clear (Clear); Color, Urine Yellow (P-Yellow)
[2018-04-18] MEDS ORDERED: INSULANPEN SC (18:36)
[2018-04-18] MEDS ORDERED: CEPH500 PO (22:23)
[2018-04-18] MEDS ORDERED: Norco 5-325 Ta1 EACH PO (22:23)
== END 2018-04-18 22:42 | disposition home or self-care (01) ==
LOC: ER 14:14
PROVIDERS: Emergency Medicine
DX: K42.9 Umbilical hernia without obstruction or gangrene (principal); L03.316 Cellulitis of umbilicus; Z88.2 Allergy status to sulfonamides; Z88.1 Allergy status to other antibiotic agents; Z79.899 Other long term (current) drug therapy; Z79.4 Long term (current) use of insulin; I10 Essential (primary) hypertension; E11.9 Type 2 diabetes mellitus without complications
CPT/HCPCS: 36415; 74022; 74176; 80053; 81003; 83690; 85025; 99284-25

== ENCOUNTER 2018-04-20 21:46 | Observation (INO) | payer MEDICARE, OTHER ==
[~2018-04-20] VITALS: Ht 172.7 cm; Wt 112.2 kg
[2018-04-20 22:48] LABS: BASOPHILS ABSOLUTE AUTO 0.06 K/mm3 (0.00-0.23); BASOPHILS PERCENT AUTO 1 % (0-2); EOSINOPHILS ABSOLUTE AUTO 0.08 K/mm3 (0.00-0.68); EOSINOPHILS PERCENT AUTO 1 % (0-6); Hemoglobin 13.5 g/dL (13.5-17.5); IMMATURE GRAN ABSOLUTE AUTO 0.39 K/mm3 (0.00-0.10); IMMATURE GRAN PERCENT AUTO 4 % (0-1); LYMPHOCYTES ABSOLUTE AUTO 0.98 K/mm3 (0.84-5.20); LYMPHOCYTES PERCENT AUTO 9 % (21-46); MONOCYTES PERCENT AUTO 11 % (4-13); Mean Corpuscular HGB Conc 31.4 g/dL (31.5-36.5); Mean Corpuscular Volume 92 fL (80-100); Mean Platelet Volume 11.5 fL (9.1-12.4); NEUTROPHILS ABSOLUTE AUTO 7.81 K/mm3 (1.96-9.15); NEUTROPHILS PERCENT AUTO 75 % (41-73); Platelet Count 228 K/mm3 (150-400); RDW Coefficient Variation 17.6 % (11.7-14.2); RDW Standard Deviation 59.4 fL (35.1-46.3); Red Blood Cell Count 4.66 M/mm3 (4.30-5.90); White Blood Cell Count 10.42 K/mm3 (4.00-11.30)
[2018-04-20 23:09] LABS: Alanine Aminotransfer (ALT/SGP 63 U/L (12-78); Albumin, Blood 3.6 g/dL (3.4-5.0); Albumin/Globulin Ratio 1.1 (0.8-1.8); Alk Phos 106 U/L (50-136); Anion Gap 8 mmol/L (6-16); Aspartate Aminotrans (AST/SGOT 31 U/L (12-37); Bilirubin, Total 0.3 mg/dL (0.1-1.0); Blood Urea Nitrogen 34 mg/dL (8-24); Bun/Creatinine Ratio 27.2 (12.0-20.0); CO2, Blood 27 mmol/L (21-32); Calcium, Blood 8.7 mg/dL (8.5-10.1); Chloride, Blood 104 mmol/L (98-108); Creatinine, Blood 1.25 mg/dL (0.60-1.20); Globulin, Blood 3.4 g/dL (2.2-4.0); Glomerular Filtration Rate >60 (60-); Glucose, Blood 192 mg/dL (70-99); Potassium, Blood 4.1 mmol/L (3.5-5.5); Sodium, Blood 139 mmol/L (136-145)
[2018-04-21 01:03] LABS: Source, Urine Clean Catch
[2018-04-21 01:13] LABS: Bilirubin, Urine Neg (Neg); Blood, Urine 1+ (Neg); Glucose Qualitative, Urine Neg (Neg); Ketones, Urine Neg (Neg); Leukocyte Esterase, Urine Neg (Neg); Nitrite, Urine Neg (Neg); Protein, Urine Neg (Neg); Urobilinogen, Urine NORM (Normal)
[2018-04-21 01:15] LABS: Appearance, Urine Clear (Clear); Color, Urine Yellow (P-Yellow)
[2018-04-21 01:19] LABS: Bacteria Not Seen /hpf; Red Blood Cells, Urine 0-2 /hpf (0-2); Squamous Epithelial Cells Not Seen /hpf (Few); White Blood Cells, Urine Not Seen /hpf (0-5)
[2018-04-21 04:47] LABS: Anion Gap 8 mmol/L (6-16); Blood Urea Nitrogen 32 mg/dL (8-24); Bun/Creatinine Ratio 28.1 (12.0-20.0); CO2, Blood 25 mmol/L (21-32); Calcium, Blood 8.6 mg/dL (8.5-10.1); Chloride, Blood 107 mmol/L (98-108); Creatinine, Blood 1.14 mg/dL (0.60-1.20); Glomerular Filtration Rate >60 (60-); Glucose, Blood 166 mg/dL (70-99); Potassium, Blood 4.1 mmol/L (3.5-5.5); Sodium, Blood 140 mmol/L (136-145)
--- NOTE | 2018-04-21 05:56 | NUR ---
SHIFT SUMMARY PT SLEEPING IN ROOM CONFORTABLY. NO CHANGES SINCE ADMIT. PT WAS VERY LETHARGIC UPON ADMIT. WAS ABLE TO ANSWER QUESTIONS UPON ADMIT BUT BECAME MORE LETHARGIC TIME WENT ON. RT IN ROOM WITH CPAP FOR SLEEP. RESP EVEN UNLABORED W/ SATS >92%. CALL LIGHT IS IN REACH.
--- NOTE | 2018-04-21 11:35 | NUR ---
PT DISCHARGED PT HAS BEEN DISCARGED TO HOME, VSS, PT HAS NO PAIN AT THIS TIME, PT ABLE TO WALK, PT WOUNDS REDRESSED, PT HAS SOME CONSERN OF STOMACH TIGHTNESS, PT HAS FOLLOW UP WITH PCP AD THE PCP IS GOOD WITH THE PLAN
== END 2018-04-21 10:25 | disposition home or self-care (01) ==
LOC: ER 21:46 → PCU 21:47
PROVIDERS: Emergency Medicine; ADMIT Family Medicine
DX: T42.6X2A Poisoning by other antiepileptic and sedative-hypnotic drugs, intentional self-harm, initial encounter (principal); I10 Essential (primary) hypertension; M54.9 Dorsalgia, unspecified; G89.29 Other chronic pain; Z79.899 Other long term (current) drug therapy; Z88.2 Allergy status to sulfonamides
CPT/HCPCS: 36415; 80048; 80053; 81001; 82947; 83690; 84484; 85025; 93005; 93010; 94660; 94762; 96374; 99285-25; G0378; J2405; J7030

== ENCOUNTER 2018-05-16 13:03 | Emergency (ER) | payer MEDICARE, OTHER ==
[~2018-05-16] VITALS: Ht 165.1 cm; Wt 116.6 kg
[2018-05-16 14:04] LABS: BASOPHILS ABSOLUTE AUTO 0.08 K/mm3 (0.00-0.23); BASOPHILS PERCENT AUTO 1 % (0-2); EOSINOPHILS ABSOLUTE AUTO 0.06 K/mm3 (0.00-0.68); EOSINOPHILS PERCENT AUTO 1 % (0-6); Hematocrit 46.2 % (37.0-53.0); Hemoglobin 14.5 g/dL (13.5-17.5); IMMATURE GRAN ABSOLUTE AUTO 0.26 K/mm3 (0.00-0.10); IMMATURE GRAN PERCENT AUTO 2 % (0-1); LYMPHOCYTES ABSOLUTE AUTO 1.25 K/mm3 (0.84-5.20); LYMPHOCYTES PERCENT AUTO 10 % (21-46); MONOCYTES ABSOLUTE AUTO 1.05 K/mm3 (0.16-1.47); MONOCYTES PERCENT AUTO 9 % (4-13); Mean Corpuscular HGB 29.8 pg (26.0-34.0); Mean Corpuscular HGB Conc 31.4 g/dL (31.5-36.5); Mean Corpuscular Volume 95 fL (80-100); Mean Platelet Volume 10.4 fL (9.1-12.4); NEUTROPHILS ABSOLUTE AUTO 9.32 K/mm3 (1.96-9.15); NEUTROPHILS PERCENT AUTO 78 % (41-73); NRBC ABSOLUTE 0.03 K/mm3 (0.00-0.02); NRBC Auto 0.2 /100 WBC (0.0-0.2); Platelet Count 204 K/mm3 (150-400); RDW Standard Deviation 59.1 fL (35.1-46.3); Red Blood Cell Count 4.86 M/mm3 (4.30-5.90); White Blood Cell Count 12.02 K/mm3 (4.00-11.30)
[2018-05-16 14:06] LABS: Source, Urine Clean Catch
[2018-05-16 14:10] LABS: Bilirubin, Urine Neg (Neg); Blood, Urine Neg (Neg); Glucose Qualitative, Urine Neg (Neg); Ketones, Urine Neg (Neg); Leukocyte Esterase, Urine 1+ (Neg); Nitrite, Urine Neg (Neg); Protein, Urine Neg (Neg); Specific Gravity, Urine 1.005 (1.003-1.022); Urobilinogen, Urine NORM (Normal)
[2018-05-16 14:23] LABS: Appearance, Urine Clear (Clear); Color, Urine Yellow (P-Yellow)
[2018-05-16 14:24] LABS: Red Blood Cells, Urine Not Seen /hpf (0-2); White Blood Cells, Urine 0-2 /hpf (0-5)
[2018-05-16 14:25] LABS: Bacteria Not Seen /hpf; Squamous Epithelial Cells Rare /hpf (Few)
[2018-05-16 14:29] LABS: Alanine Aminotransfer (ALT/SGP 86 U/L (12-78); Albumin, Blood 3.6 g/dL (3.4-5.0); Alk Phos 127 U/L (50-136); Anion Gap 9 mmol/L (6-16); Aspartate Aminotrans (AST/SGOT 28 U/L (12-37); Bilirubin, Total 0.8 mg/dL (0.1-1.0); Blood Urea Nitrogen 16 mg/dL (8-24); Bun/Creatinine Ratio 13.9 (12.0-20.0); CO2, Blood 27 mmol/L (21-32); Calcium, Blood 9.2 mg/dL (8.5-10.1); Chloride, Blood 105 mmol/L (98-108); Creatinine, Blood 1.15 mg/dL (0.60-1.20); Globulin, Blood 3.6 g/dL (2.2-4.0); Glomerular Filtration Rate >60 (60-); Glucose, Blood 153 mg/dL (70-99); Potassium, Blood 4.4 mmol/L (3.5-5.5); Sodium, Blood 141 mmol/L (136-145); Total Protein, Blood 7.2 g/dL (6.4-8.2)
[2018-05-16] MEDS ORDERED: Norco 5-325 Ta1 EACH PO (15:28)
[2018-05-16] MEDS ORDERED: Cipro500 MG PO (15:28)
== END 2018-05-16 15:46 | disposition home or self-care (01) ==
LOC: ER 13:03
PROVIDERS: Physician Assistant
DX: N41.0 Acute prostatitis (principal); Z88.2 Allergy status to sulfonamides; Z88.1 Allergy status to other antibiotic agents; Z79.899 Other long term (current) drug therapy; Z79.4 Long term (current) use of insulin; I10 Essential (primary) hypertension
CPT/HCPCS: 36415; 74176; 80053; 81001; 85025; 87086; 96360; 99284-25; J7030

== ENCOUNTER 2018-06-27 12:45 | Emergency (ER) | payer MEDICARE, OTHER ==
[~2018-06-27] VITALS: Ht 177.8 cm; Wt 104.3 kg
[~2018-06-27 12:45] MED LIST changes: +Cipro500 MG PO
[2018-06-27] MEDS ORDERED: Roxicodone5 MG PO (13:49)
[2018-06-27] MEDS ORDERED: Voltaren100 GM TOP (13:49)
[2018-06-27] MEDS ORDERED: Arthritis Pai42.5 GM TOP (13:49)
[2018-06-27] MEDS ORDERED: DULO30 PO (14:16)
[2018-06-27] MEDS ORDERED: Amiodarone HCl200 MG PO (14:16)
[2018-06-27] MEDS ORDERED: LISI5 PO (14:16)
[2018-06-27] MEDS ORDERED: OXYC10TA19 (14:16)
== END 2018-06-27 14:43 | disposition home or self-care (01) ==
LOC: ER 12:45
DX: M25.552 Pain in left hip (principal); G89.29 Other chronic pain; I10 Essential (primary) hypertension; Z88.2 Allergy status to sulfonamides; Z88.1 Allergy status to other antibiotic agents; Z79.899 Other long term (current) drug therapy; Z79.4 Long term (current) use of insulin
CPT/HCPCS: 73502; 96374; 99283-25; J1170

== ENCOUNTER 2019-02-04 11:44 | Emergency (ER) | payer MEDICARE, OTHER ==
[~2019-02-04 11:44] MED LIST changes: +Arthritis Pai42.5 GM TOP; +DULO30 PO; +LISI5 PO; +OXYC10TA19; +Roxicodone5 MG PO; +Voltaren100 GM TOP
== END 2019-02-04 12:10 | disposition left against medical advice (07) ==
LOC: ER 11:44
DX: Z53.21 Procedure and treatment not carried out due to patient leaving prior to being seen by health care provider (principal)

== ENCOUNTER → 2019-04-13 | Outpatient (CLI) | payer MEDICARE, OTHER ==
[~2019-04-13] MED LIST changes: +LEVO750 PO; +METO25ER; +MINO50 PO
== END | disposition home or self-care (01) ==
LOC: LAB SHORT 16:59 → LAB 16:59
DX: L02.512 Cutaneous abscess of left hand (principal)
CPT/HCPCS: 87070; 87075; 87205

== ENCOUNTER → 2019-04-21 | Outpatient (CLI) | payer MEDICARE, OTHER | END | disposition home or self-care (01) | LOC: LAB 09:30 → LAB SHORT 09:30 | DX: S91.302A Unspecified open wound, left foot, initial encounter (principal) | CPT/HCPCS: 87070; 87205 ==

== ENCOUNTER 2019-04-22 11:45 | Emergency (ER) | payer MEDICARE, OTHER ==
[~2019-04-22] VITALS: Ht 172.7 cm; Wt 115.2 kg
[~2019-04-22 11:45] MED LIST changes: -LEVO750 PO; -METO25ER; -MINO50 PO
[2019-04-22] MEDS ORDERED: PANT40 PO (13:08)
[2019-04-22] MEDS ORDERED: LEVO750 PO (13:09)
[2019-04-22] MEDS ORDERED: MINO50 PO (13:10)
[2019-04-22] MEDS ORDERED: METO25ER (13:11)
[2019-04-22 15:38] LABS: BASOPHILS ABSOLUTE AUTO 0.04 K/mm3 (0.00-0.23); BASOPHILS PERCENT AUTO 0 % (0-2); EOSINOPHILS ABSOLUTE AUTO 0.08 K/mm3 (0.00-0.68); EOSINOPHILS PERCENT AUTO 1 % (0-6); Hematocrit 39.2 % (37.0-53.0); Hemoglobin 11.2 g/dL (13.5-17.5); IMMATURE GRAN ABSOLUTE AUTO 0.21 K/mm3 (0.00-0.10); IMMATURE GRAN PERCENT AUTO 2 % (0-1); LYMPHOCYTES ABSOLUTE AUTO 0.84 K/mm3 (0.84-5.20); LYMPHOCYTES PERCENT AUTO 8 % (21-46); MONOCYTES ABSOLUTE AUTO 0.88 K/mm3 (0.16-1.47); MONOCYTES PERCENT AUTO 9 % (4-13); Mean Corpuscular HGB 24.3 pg (26.0-34.0); Mean Corpuscular HGB Conc 28.6 g/dL (31.5-36.5); Mean Corpuscular Volume 85 fL (80-100); Mean Platelet Volume 10.8 fL (9.1-12.4); NEUTROPHILS ABSOLUTE AUTO 8.17 K/mm3 (1.96-9.15); NEUTROPHILS PERCENT AUTO 80 % (41-73); Platelet Count 286 K/mm3 (150-400); RDW Coefficient Variation 17.4 % (11.7-14.2); RDW Standard Deviation 54.3 fL (35.1-46.3); Red Blood Cell Count 4.61 M/mm3 (4.30-5.90); White Blood Cell Count 10.22 K/mm3 (4.00-11.30)
[2019-04-22 15:57] LABS: Alanine Aminotransfer (ALT/SGP 66 U/L (12-78); Albumin, Blood 2.9 g/dL (3.4-5.0); Albumin/Globulin Ratio 0.8 (0.8-1.8); Alk Phos 120 U/L (50-136); Anion Gap 8 mmol/L (6-16); Aspartate Aminotrans (AST/SGOT 35 U/L (12-37); Bilirubin, Total 0.5 mg/dL (0.1-1.0); Blood Urea Nitrogen 27 mg/dL (8-24); Bun/Creatinine Ratio 32.6 (12.0-20.0); C-REACTIVE PROTEIN, EXT RANGE <0.290 mg/dL (0.000-0.300); CO2, Blood 28 mmol/L (21-32); Calcium, Blood 8.7 mg/dL (8.5-10.1); Chloride, Blood 105 mmol/L (98-108); Creatinine, Blood 0.83 mg/dL (0.60-1.20); Globulin, Blood 3.5 g/dL (2.2-4.0); Glomerular Filtration Rate >60 (60-); Glucose, Blood 153 mg/dL (70-99); Potassium, Blood 4.3 mmol/L (3.5-5.5); Sodium, Blood 141 mmol/L (136-145); Total Protein, Blood 6.4 g/dL (6.4-8.2)
== END 2019-04-22 19:40 | disposition home or self-care (01) ==
LOC: ER 11:45
PROVIDERS: Emergency Medicine
DX: L02.512 Cutaneous abscess of left hand (principal); L02.612 Cutaneous abscess of left foot; L03.116 Cellulitis of left lower limb; E11.621 Type 2 diabetes mellitus with foot ulcer; L97.429 Non-pressure chronic ulcer of left heel and midfoot with unspecified severity; I10 Essential (primary) hypertension; M19.90 Unspecified osteoarthritis, unspecified site; G89.29 Other chronic pain; Z88.2 Allergy status to sulfonamides; Z88.8 Allergy status to other drugs, medicaments and biological substances; Z79.899 Other long term (current) drug therapy
CPT/HCPCS: 10060; 36415; 73130; 73630; 80053; 82947; 85025; 85651; 86140; 99283-25

== ENCOUNTER 2019-05-21 10:05 | Emergency (ER) | payer MEDICARE, OTHER ==
[~2019-05-21] VITALS: Ht 172.7 cm; Wt 117.0 kg
[~2019-05-21 10:05] MED LIST changes: +LEVO750 PO; +METO25ER; +MINO50 PO
[2019-05-21] MEDS ORDERED: NYST237S MT (10:37)
== END 2019-05-21 10:52 | disposition home or self-care (01) ==
LOC: ER 10:05
DX: R13.10 Dysphagia, unspecified (principal); I10 Essential (primary) hypertension; E11.9 Type 2 diabetes mellitus without complications; E78.5 Hyperlipidemia, unspecified; Z79.899 Other long term (current) drug therapy; Z79.4 Long term (current) use of insulin
CPT/HCPCS: 99283

== ENCOUNTER 2019-06-01 07:54 | Day surgery (SDC) | payer MEDICARE, OTHER ==
[~2019-06-01] VITALS: Ht 172.7 cm; Wt 122.2 kg
[~2019-06-01 07:54] MED LIST changes: +NYST237S MT
== END 2019-06-01 10:10 | disposition home or self-care (01) ==
LOC: ORSCSDS 07:54
PROVIDERS: Internal Medicine Gastroenterology
PROC: 0DJ08ZZ Inspection of Upper Intestinal Tract, Via Natural or Artificial Opening Endoscopic (ICD-10-PCS; principal; 2019-06-01 09:15)
DX: R13.10 Dysphagia, unspecified (principal); K31.7 Polyp of stomach and duodenum; B37.81 Candidal esophagitis; J45.909 Unspecified asthma, uncomplicated; E11.9 Type 2 diabetes mellitus without complications; I10 Essential (primary) hypertension; Z86.73 Personal history of transient ischemic attack (TIA), and cerebral infarction without residual deficits; G47.33 Obstructive sleep apnea (adult) (pediatric); I25.10 Atherosclerotic heart disease of native coronary artery without angina pectoris; E66.01 Morbid (severe) obesity due to excess calories; Z68.41 Body mass index [BMI] 40.0-44.9, adult; Z79.4 Long term (current) use of insulin; Z79.01 Long term (current) use of anticoagulants; Z79.899 Other long term (current) drug therapy
CPT/HCPCS: 82947; J2250; J2704; J7120

== ENCOUNTER 2019-06-20 15:12 | Inpatient (IN) | payer MEDICARE, OTHER ==
[~2019-06-20] VITALS: Ht 172.7 cm; Wt 116.1 kg
[~2019-06-20 15:12] MED LIST changes: -FURO80 PO; -Novolog Fl100 UNIT/1 SC; -OXYC10TA19; -SPIR25 PO; -XARELTO10 MG PO
[2019-06-20 16:03] LABS: Hematocrit 32.2 % (37.0-53.0); Hemoglobin 8.8 g/dL (13.5-17.5); Mean Corpuscular HGB 22.1 pg (26.0-34.0); Mean Corpuscular HGB Conc 27.3 g/dL (31.5-36.5); Mean Corpuscular Volume 81 fL (80-100); Mean Platelet Volume 11.3 fL (9.1-12.4); NRBC ABSOLUTE 0.06 K/mm3 (0.00-0.02); NRBC Auto 0.3 /100 WBC (0.0-0.2); Platelet Count 412 K/mm3 (150-400); RDW Coefficient Variation 18.8 % (11.7-14.2); Red Blood Cell Count 3.99 M/mm3 (4.30-5.90); White Blood Cell Count 20.96 K/mm3 (4.00-11.30)
[2019-06-20 16:18] LABS: International Normalized Ratio 1.21; Prothrombin Time Results 12.8 Sec (9.7-11.5)
[2019-06-20 16:25] LABS: BAND PERCENT MAN 11 % (0-8); BASOPHILS PERCENT MAN 0 % (0-2); EOSINOPHILS PERCENT MAN 0 % (0-6); LYMPHOCYTES ABSOLUTE MAN 0.41 K/mm3 (0.84-5.20); LYMPHOCYTES PERCENT MAN 2 % (21-46); METAMYELOCYTE PERCENT MAN 1 % (0-0); MONOCYTES PERCENT MAN 1 % (4-13); NEUTROPHILS ABSOLUTE MAN 20.12 K/mm3 (1.96-9.15); SEG NEUTROPHILS PERCENT MAN 85 % (41-73); TOTAL CELLS COUNTED 100
[2019-06-20 16:31] LABS: Albumin, Blood 2.6 g/dL (3.4-5.0); Albumin/Globulin Ratio 0.7 (0.8-1.8); Bilirubin, Total 0.7 mg/dL (0.1-1.0); Bun/Creatinine Ratio 21.2 (12.0-20.0); Calcium, Blood 8.7 mg/dL (8.5-10.1); Creatinine, Blood 1.37 mg/dL (0.60-1.20); Globulin, Blood 3.8 g/dL (2.2-4.0); Potassium, Blood 5.1 mmol/L (3.5-5.5); Total Protein, Blood 6.4 g/dL (6.4-8.2)
[2019-06-20] MEDS ORDERED: LISI5 PO (18:07)
[2019-06-20] MEDS ORDERED: ATOR80 PO (18:07)
[2019-06-20] MEDS ORDERED: PANT40 PO (18:08)
[2019-06-20] MEDS ORDERED: NOVOLOG FL100 UNIT/1 SC (18:09)
[2019-06-20] MEDS ORDERED: XARELTO15 MG PO (18:10)
[2019-06-20] MEDS ORDERED: Amiodarone HCl200 MG PO (18:10)
[2019-06-20] MEDS ORDERED: INSDET100 SC (18:11)
[2019-06-20] MEDS ORDERED: METO25ER PO (18:11)
[2019-06-20] MEDS ORDERED: Fentanyl1 EACH TD (18:12)
[2019-06-20] MEDS ORDERED: OXYC10TA19 PO (18:12)
[2019-06-20] MEDS ORDERED: FURO80 PO (18:13)
[2019-06-20] MEDS ORDERED: TRULICITY0.75 MG/0. SC (18:14)
[2019-06-20] MEDS ORDERED: CLOP75 PO (18:15)
[2019-06-20] MEDS ORDERED: POTA10T PO (18:15)
[2019-06-20] MEDS ORDERED: SPIR25 PO (18:16)
[2019-06-20] MEDS ORDERED: ALFUZOSIN HCL10 MG PO (18:17)
--- NOTE | 2019-06-21 04:10 | NUR ---
SHIFT SUMMARY ADMITTED THIS SHIFT FOR CELLULITIS/SEPSIS. FULL CODE. PLAN IS FOR IV ANTIBIOTICS, MONITOR LABS, IMPROVE THE SEPSIS. RESUME DIURESIS SOON PT IS IN FLUID OVERLOAD. LUNGS ARE DIM BUT NOT WET YET. PT IS SOB W/MOVEMENT OR REPOSITIONING. ROOM AIR AT HOME, USES CPAP @ PM. HERE HE IS ON 4 LPM. BUE & BLE ARE EDEMATOUS +4. HE HAS HOME MEDICATION SPIRONALACTONE & FUROSEMIDE THAT ARE NOT IN [facility] UNTIL SEPSIS IMPROVES. LACTIC IS DOWNTRENDING. MILD FEVERS NOTED. HAS BEEN OFF HIS XARELTO FOR 2 DAYS HE WAS SCHEDULED FOR A SURGICAL REVASCULARIZING PROCEDURE TODAY (SEE ELEVATED TROPONIN LAB VALUE). ONLY 250 ML NS INFUSED IN ED DUE TO FLUID OVERLOAD. ADA DIET, ACHS CHEMSTICKS, MED SS, A&O X4. APPEARS EXTREMELY FATIGUED AND WEAK. HX: PAD, CAD W/STENTS, DM2, CHRONIC BACK PAIN, HYPERLIPIDEMIA, CHF, AFIB, HTN, ARF.
[2019-06-21 07:03] LABS: Hematocrit 29.5 % (37.0-53.0); Hemoglobin 7.9 g/dL (13.5-17.5); Mean Corpuscular HGB 22.1 pg (26.0-34.0); Mean Corpuscular HGB Conc 26.8 g/dL (31.5-36.5); Mean Corpuscular Volume 82 fL (80-100); Mean Platelet Volume 11.1 fL (9.1-12.4); NRBC ABSOLUTE 0.05 K/mm3 (0.00-0.02); NRBC Auto 0.3 /100 WBC (0.0-0.2); Platelet Count 340 K/mm3 (150-400); RDW Coefficient Variation 18.7 % (11.7-14.2); RDW Standard Deviation 55.6 fL (35.1-46.3); Red Blood Cell Count 3.58 M/mm3 (4.30-5.90); White Blood Cell Count 14.82 K/mm3 (4.00-11.30)
[2019-06-21 07:22] LABS: Albumin, Blood 2.4 g/dL (3.4-5.0); Albumin/Globulin Ratio 0.7 (0.8-1.8); Bilirubin, Total 0.9 mg/dL (0.1-1.0); Bun/Creatinine Ratio 19.4 (12.0-20.0); Calcium, Blood 8.6 mg/dL (8.5-10.1); Creatinine, Blood 1.34 mg/dL (0.60-1.20); Globulin, Blood 3.5 g/dL (2.2-4.0); Magnesium, Blood 2.1 mg/dL (1.6-2.4); Potassium, Blood 4.2 mmol/L (3.5-5.5); Total Protein, Blood 5.9 g/dL (6.4-8.2)
[2019-06-21 07:31] LABS: BAND PERCENT MAN 14 % (0-8); BASOPHILS PERCENT MAN 0 % (0-2); EOSINOPHILS PERCENT MAN 0 % (0-6); LYMPHOCYTES ABSOLUTE MAN 0.29 K/mm3 (0.84-5.20); LYMPHOCYTES PERCENT MAN 2 % (21-46); METAMYELOCYTE ABSOLUTE MAN 0.14 K/mm3 (0.00-0.00); METAMYELOCYTE PERCENT MAN 1 % (0-0); MONOCYTES ABSOLUTE MAN 0.14 K/mm3 (0.16-1.47); MONOCYTES PERCENT MAN 1 % (4-13); NEUTROPHILS ABSOLUTE MAN 14.22 K/mm3 (1.96-9.15); SEG NEUTROPHILS PERCENT MAN 82 % (41-73); TOTAL CELLS COUNTED 100
--- NOTE | 2019-06-21 19:01 | NUR ---
SHIFT SUMMARY PT HAS BEEN SLEEPING MOST OF THE SHIFT. MEDICATED FOR PAIN X1 THIS SHIFT. ULTRASOUND ASSISTED DRAINAGE OF LEFT HAND LUMP. SMALL BANDAID IN PLACE. PT CONTINUES TO HAVE SWELLING THROUGH OUT. NO ACUTE CHANGES THIS SHIFT. WILL CONTINUE TO MONITOR AND REPORT TO ONCOMING RN. CALL LIGHT IN REACH.
--- NOTE | 2019-06-21 22:51 | NUR ---
REPOSITIONED IN BED EARLIER. IV ANTIBIOTIC INFUSING PER MD ORDERS - SEE MAR FOR DETAILS. HOB ELEVATED FOR COMFORT AND BETTER BREATHING. AFFECT ATTENTIVE AT THE TIME. CALL LIGHT IN REACH. WILL MONITOR -
[2019-06-22 05:02] LABS: Hematocrit 28.7 % (37.0-53.0); Hemoglobin 7.8 g/dL (13.5-17.5); Mean Corpuscular HGB 22.1 pg (26.0-34.0); Mean Corpuscular HGB Conc 27.2 g/dL (31.5-36.5); Mean Corpuscular Volume 81 fL (80-100); Mean Platelet Volume 10.9 fL (9.1-12.4); NRBC ABSOLUTE 0.02 K/mm3 (0.00-0.02); NRBC Auto 0.1 /100 WBC (0.0-0.2); Platelet Count 307 K/mm3 (150-400); RDW Coefficient Variation 18.6 % (11.7-14.2); RDW Standard Deviation 54.5 fL (35.1-46.3); Red Blood Cell Count 3.53 M/mm3 (4.30-5.90); White Blood Cell Count 13.93 K/mm3 (4.00-11.30)
--- NOTE | 2019-06-22 05:20 | NUR ---
PT HAS BEEN RESTING QUIETLY WITH FEW INTERRUPTIONS THIS SHIFT. WAS AWAKENED AFTER HS, SISTER CALLED AND PT AGREED TO LET NURSE DISCUSS HIS CONDITION. SISTER STATED SHE WOULD CALL BACK LATER THIS AM TO SEE IF SHE COULD TALK TO THE MD. PT CURRENTLY RESTING. CALL LIGHT IN REACH. IV ABX ADMINISTERED PER MD ORDER - SEE MAR FOR DETAILS.
[2019-06-22 05:24] LABS: BAND PERCENT MAN 16 % (0-8); BASOPHILS PERCENT MAN 0 % (0-2); EOSINOPHILS ABSOLUTE MAN 0.27 K/mm3 (0.00-0.68); EOSINOPHILS PERCENT MAN 2 % (0-6); LYMPHOCYTES ABSOLUTE MAN 0.83 K/mm3 (0.84-5.20); LYMPHOCYTES PERCENT MAN 6 % (21-46); MONOCYTES ABSOLUTE MAN 0.97 K/mm3 (0.16-1.47); MONOCYTES PERCENT MAN 7 % (4-13); NEUTROPHILS ABSOLUTE MAN 11.84 K/mm3 (1.96-9.15); SEG NEUTROPHILS PERCENT MAN 69 % (41-73); TOTAL CELLS COUNTED 100
[2019-06-22 05:49] LABS: Alanine Aminotransfer (ALT/SGP 119 U/L (12-78); Albumin, Blood 2.1 g/dL (3.4-5.0); Albumin/Globulin Ratio 0.6 (0.8-1.8); Alk Phos 97 U/L (50-136); Anion Gap 5 mmol/L (6-16); Aspartate Aminotrans (AST/SGOT 81 U/L (12-37); Bilirubin, Total 0.5 mg/dL (0.1-1.0); Blood Urea Nitrogen 20 mg/dL (8-24); Bun/Creatinine Ratio 18.3 (12.0-20.0); CO2, Blood 30 mmol/L (21-32); Calcium, Blood 8.5 mg/dL (8.5-10.1); Chloride, Blood 103 mmol/L (98-108); Creatinine, Blood 1.09 mg/dL (0.60-1.20); Globulin, Blood 3.7 g/dL (2.2-4.0); Glomerular Filtration Rate >60 (60-); Glucose, Blood 97 mg/dL (70-99); Potassium, Blood 4.1 mmol/L (3.5-5.5); Sodium, Blood 138 mmol/L (136-145); Total Protein, Blood 5.8 g/dL (6.4-8.2)
[2019-06-22 09:01] LABS: Vancomycin, Trough 16.4 ug/mL (5.0-10.0)
--- NOTE | 2019-06-22 19:32 | NUR ---
SHIFT SUMMARY PT HAS BEEN AWAKE MORE THIS SHIFT. PT WAS UNABLE TO VOID THIS AM AND PT WAS BLADDER SCANNED WITH OVER 400ML IN BLADDER. DR. MILLER WAS NOTIFIED OF PT'S RETENTION AND A ONE TIME STRAIGHT CATH WAS ORDERED. THIS RN DRAINED 600 ML FROM BLADDER. PT HAS NOT VOIDED SINCE STRAIGHT CATHED. NOC RN AWARE. PT'S FENTANYL PATCH WAS RESTARTED AND OXYCODONE WAS INCREASED TO PT'S HOME DOSE. THIS WAS VERIFIED WITH HIS PAIN CLINIC. THIS RN ENCOURAGED PT TO KEEP HANDS ELEVATED FOR SWELLING AND TO BE TURNING TO GET OFF BUTTOCKS. NO ACUTE CHANGES THIS SHIFT. CALL LIGHT IN REACH. REPORT TO ONCOMING RN.
--- NOTE | 2019-06-23 04:45 | NUR ---
SHIFT SUMMARY PT IS ALERT, CONFUSED/FORGETFUL AT TIMES. BED ALARM IN PLACE. NEEDS 2X ASSIST TO REPOSITION; HAS BEEN REPOSITIONED MULT TIMES DURING THE NIGHT. PAIN MANAGED WITH PO PAIN MEDS PER ORDERS. PT IS TOLERATING PO INTAKE AND VOIDING. PT USING O2 NC DURING THE NIGHT. ASSISTED WITH ALD'S PRN.
[2019-06-23 05:21] LABS: Hematocrit 29.2 % (37.0-53.0); Hemoglobin 7.9 g/dL (13.5-17.5); Mean Corpuscular HGB 21.9 pg (26.0-34.0); Mean Corpuscular HGB Conc 27.1 g/dL (31.5-36.5); Mean Corpuscular Volume 81 fL (80-100); Mean Platelet Volume 11.5 fL (9.1-12.4); NRBC ABSOLUTE 0.03 K/mm3 (0.00-0.02); NRBC Auto 0.2 /100 WBC (0.0-0.2); Platelet Count 316 K/mm3 (150-400); RDW Coefficient Variation 18.4 % (11.7-14.2); RDW Standard Deviation 53.7 fL (35.1-46.3); White Blood Cell Count 12.17 K/mm3 (4.00-11.30)
[2019-06-23 05:35] LABS: Percent Saturation 6.6 % (20.0-50.0)
[2019-06-23 05:51] LABS: Alanine Aminotransfer (ALT/SGP 106 U/L (12-78); Albumin/Globulin Ratio 0.5 (0.8-1.8); Alk Phos 103 U/L (50-136); Anion Gap 7 mmol/L (6-16); Aspartate Aminotrans (AST/SGOT 94 U/L (12-37); Bilirubin, Total 0.4 mg/dL (0.1-1.0); Blood Urea Nitrogen 19 mg/dL (8-24); Bun/Creatinine Ratio 18.6 (12.0-20.0); CO2, Blood 28 mmol/L (21-32); Calcium, Blood 8.2 mg/dL (8.5-10.1); Chloride, Blood 101 mmol/L (98-108); Creatinine, Blood 1.02 mg/dL (0.60-1.20); Globulin, Blood 3.8 g/dL (2.2-4.0); Glomerular Filtration Rate >60 (60-); Glucose, Blood 124 mg/dL (70-99); Sodium, Blood 136 mmol/L (136-145); Total Protein, Blood 5.8 g/dL (6.4-8.2)
[2019-06-23 05:52] LABS: BAND PERCENT MAN 1 % (0-8); BASOPHILS PERCENT MAN 0 % (0-2); EOSINOPHILS ABSOLUTE MAN 0.12 K/mm3 (0.00-0.68); EOSINOPHILS PERCENT MAN 1 % (0-6); LYMPHOCYTES ABSOLUTE MAN 0.97 K/mm3 (0.84-5.20); LYMPHOCYTES PERCENT MAN 8 % (21-46); MONOCYTES ABSOLUTE MAN 1.21 K/mm3 (0.16-1.47); MONOCYTES PERCENT MAN 10 % (4-13); NEUTROPHILS ABSOLUTE MAN 9.85 K/mm3 (1.96-9.15); SEG NEUTROPHILS PERCENT MAN 80 % (41-73); TOTAL CELLS COUNTED 100
--- NOTE | 2019-06-23 17:58 | NUR ---
SHIFT SUMMARY PT ALERT AND ORIENTED. VS STABLE. O2 SATS REMAIN ABOVE 90%. PT COMPLAINED OF PAIN IN HIS BACK THAT IS CHRONIC AND MEDICATED NEEDED. WOUND TO COCCYX WAS DRESSED AND PT HAS REMAINED ON HIS SIDE OR FLOATED ON PILLOWS TO KEEP PRESSURE OFF OF WOUND. WOUNDS TO BILATERAL EXTREMITIES HAVE BEEN CLEANED AND REDRESSED THIS SHIFT. DR. MILLER AWARE OF ABSENT PULSE EVEN WITH DOPPLER. LEGS HAVE BEEN ELEVATED THIS SHIFT. WILL CONTINUE TO MONITOR AND REPORT TO ONCOMING RN. CALL LIGHT IN REACH.
--- NOTE | 2019-06-24 05:13 | NUR ---
SHIFT SUMMARY [id number]. PT REPOSITIONED Q2 OR PT REQUESTED. USING URINAL, CALLING APPPROPRIAATLY. MEDICATED FOR PAIN X1 DURING SHIFT R/T CHRONIC BACK PAIN. REPORTS NUMBNESS IN FEET STILL. LEFT HAND SWOLLEN STILL. PT VOIDING FREQUENTLY. ONE LARGE BM DURING SHIFT.
[2019-06-24 05:32] LABS: Hematocrit 29.4 % (37.0-53.0); Hemoglobin 8.1 g/dL (13.5-17.5); Mean Corpuscular HGB Conc 27.6 g/dL (31.5-36.5); Mean Corpuscular Volume 80 fL (80-100); Mean Platelet Volume 11.2 fL (9.1-12.4); NRBC ABSOLUTE 0.02 K/mm3 (0.00-0.02); NRBC Auto 0.2 /100 WBC (0.0-0.2); Platelet Count 297 K/mm3 (150-400); RDW Coefficient Variation 18.3 % (11.7-14.2); RDW Standard Deviation 53.3 fL (35.1-46.3); Red Blood Cell Count 3.68 M/mm3 (4.30-5.90)
[2019-06-24 05:55] LABS: Alanine Aminotransfer (ALT/SGP 102 U/L (12-78); Albumin/Globulin Ratio 0.5 (0.8-1.8); Alk Phos 119 U/L (50-136); Anion Gap 5 mmol/L (6-16); Aspartate Aminotrans (AST/SGOT 64 U/L (12-37); Bilirubin, Total 0.2 mg/dL (0.1-1.0); Blood Urea Nitrogen 23 mg/dL (8-24); Bun/Creatinine Ratio 25.7 (12.0-20.0); CO2, Blood 31 mmol/L (21-32); Calcium, Blood 8.4 mg/dL (8.5-10.1); Chloride, Blood 99 mmol/L (98-108); Creatinine, Blood 0.89 mg/dL (0.60-1.20); Globulin, Blood 3.9 g/dL (2.2-4.0); Glomerular Filtration Rate >60 (60-); Glucose, Blood 307 mg/dL (70-99); Potassium, Blood 4.4 mmol/L (3.5-5.5); Sodium, Blood 135 mmol/L (136-145); Total Protein, Blood 5.9 g/dL (6.4-8.2)
[2019-06-24 10:52] LABS: Percent Saturation 7.6 % (20.0-50.0)
--- NOTE | 2019-06-24 17:07 | NUR ---
PT AOX4 AND COOPERATIVE OF CARE. PT DOING WELL TODAY AND WAS UP IN CHAIR MOST OF THE DAY. PT NEEDS HELP WITH URINAL HE HAS TROUBLE GRASPING STILL WITH HIS HANDS. CALL APPROPRIATELY AND REPORTED BACK PAIN TODAY AND WAS TREATED PER EMAR. PT IS NOW IN BED AND WAITING FOR DINNER. WILL CONINTUE TO MONITOR.
[2019-06-25 06:10] LABS: Anion Gap 6 mmol/L (6-16); Blood Urea Nitrogen 29 mg/dL (8-24); Bun/Creatinine Ratio 32.3 (12.0-20.0); CO2, Blood 31 mmol/L (21-32); Calcium, Blood 8.2 mg/dL (8.5-10.1); Chloride, Blood 100 mmol/L (98-108); Glomerular Filtration Rate >60 (60-); Glucose, Blood 190 mg/dL (70-99); Potassium, Blood 4.3 mmol/L (3.5-5.5); Sodium, Blood 137 mmol/L (136-145)
--- NOTE | 2019-06-25 07:37 | NUR ---
06/25/19 0610 MEDICATED SEVERAL TIMES FOR CHRONIC BACK PAIN AND "NEUROPATHY" IN LEGS. VITALS STABLE. DOES ASK FOR ICE CREAM AND OTHER NON-DIABETIC ITEMS THROUGHOUT THE NIGHT. NEEDS ASSISTENCE WITH USING THE URINAL AND GETTING MOVED AROUND IN BED. STATES HE LIVES ALONE AT HOME. BILATERAL LOWER EXTREMITIES RED AND FLAKEY. LEGS UP ON PILLOW WHEN PT WILL ALLOW.
--- NOTE | 2019-06-25 17:31 | NUR ---
PT AOX4 AND COOPERATIVE OF CARE. PT HAS BEEN UP IN CHAIR A LOT TODAY AND IS A ONE PERSON ASSIST WITH GAIT BELT TO BED. PT HAS ALSO BEEN UP TO COMMODE. WITH MORE MOVEMENT PT SEEMS TO BE HAVING INCREASED PAIN AND IS BEING TREATED PER EMAR. CELLULITIS HAS NOT WORSENED AT THIS TIME AND LEGS ARE NOT WEEPING. WILL CONTINUE TO MONITOR.
[2019-06-26 05:44] LABS: Hematocrit 35.1 % (37.0-53.0); Hemoglobin 9.5 g/dL (13.5-17.5); Mean Corpuscular HGB 21.6 pg (26.0-34.0); Mean Corpuscular HGB Conc 27.1 g/dL (31.5-36.5); Mean Corpuscular Volume 80 fL (80-100); Mean Platelet Volume 11.4 fL (9.1-12.4); NRBC ABSOLUTE 0.14 K/mm3 (0.00-0.02); NRBC Auto 1.1 /100 WBC (0.0-0.2); Platelet Count 388 K/mm3 (150-400); RDW Coefficient Variation 18.5 % (11.7-14.2); RDW Standard Deviation 53.1 fL (35.1-46.3); Red Blood Cell Count 4.39 M/mm3 (4.30-5.90); White Blood Cell Count 12.42 K/mm3 (4.00-11.30)
[2019-06-26 06:04] LABS: Anion Gap 6 mmol/L (6-16); Blood Urea Nitrogen 28 mg/dL (8-24); Bun/Creatinine Ratio 28.7 (12.0-20.0); CO2, Blood 34 mmol/L (21-32); Calcium, Blood 8.3 mg/dL (8.5-10.1); Chloride, Blood 97 mmol/L (98-108); Creatinine, Blood 0.97 mg/dL (0.60-1.20); Glomerular Filtration Rate >60 (60-); Glucose, Blood 100 mg/dL (70-99); Potassium, Blood 3.6 mmol/L (3.5-5.5); Sodium, Blood 137 mmol/L (136-145)
[2019-06-26 06:06] LABS: BAND PERCENT MAN 1 % (0-8); BASOPHILS PERCENT MAN 0 % (0-2); EOSINOPHILS PERCENT MAN 0 % (0-6); LYMPHOCYTES ABSOLUTE MAN 1.11 K/mm3 (0.84-5.20); LYMPHOCYTES PERCENT MAN 9 % (21-46); METAMYELOCYTE ABSOLUTE MAN 0.24 K/mm3 (0.00-0.00); METAMYELOCYTE PERCENT MAN 2 % (0-0); MONOCYTES ABSOLUTE MAN 0.86 K/mm3 (0.16-1.47); MONOCYTES PERCENT MAN 7 % (4-13); NEUTROPHILS ABSOLUTE MAN 10.18 K/mm3 (1.96-9.15); SEG NEUTROPHILS PERCENT MAN 81 % (41-73); TOTAL CELLS COUNTED 100
--- NOTE | 2019-06-26 06:22 | NUR ---
SHIFT SUMMARY PATIENT ALERT AND ORIENTED. UNABLE TO GET MUCH SLEEP DUE TO THE PAIN HE WAS EXPERIENCING. PATIENT MEDICATED FOR PAIN PER EM[facility] PATIENT ALSO ENCOURAGED TO FIND A POSITION IN WHICH HE WAS THE MOST COMFORTABLE. IV PATENT AND FLUSHED BED IN LOWEST POSITION WITH WHEELS LOCKED. CALL LIGHT WITHIN REACH. REPORT GIVEN TO ONCOMING RN.
[2019-06-26 14:07] LABS: Stool Occult Blood Guaiac 1 Neg (Neg)
--- NOTE | 2019-06-26 15:18 | NUR ---
PT TRANSFERED TO [facility]. REPORT CALLED PRIOR TO TRANSFER. PACKET SENT WITH MEAT TEAM MEMBER AND PT TRANSPORTED VIA WHEELCHAIR WITH ALL PERSONAL BELONGINGS WERE SENT WITH PT. NO DISTRESS NOTED UPON DEPARTURE. PACKET SENT WITH PT WITH NEEDED HARDSCRIPTS INSIDE. PT HAS BEEN AOX4 AND COOPERATIVE OF CARE TODAY. PT WAS ALSO UP A COUPLE TIMES IN CHAIR ONE PERSON WITH GAIT BELT AND WALKER. PT'S CELLULITUS HAS NOT WORSENED PT TREATED FOR PAIN PER [facility]. PT VOIDING WELL ALL MORNING.
[2019-06-26] MEDS ORDERED: MIRALAX17 GM PO (17:33)
[2019-06-26] MEDS ORDERED: METO2.5 PO (17:34)
[2019-06-26] MEDS ORDERED: Vsl#3 Capsule1 EACH PO (17:35)
[2019-06-26] MEDS ORDERED: FERSU300 PO (17:36)
[2019-06-26] MEDS ORDERED: DIPH12.5EL MT (17:37)
[2019-06-26] MEDS ORDERED: ACET325 PO (17:39)
[2019-06-26] MEDS ORDERED: Ceftriaxon2 GM/50 ML IV (17:39)
== END 2019-06-26 15:22 | DRG 872 ==
LOC: ER 15:12 → MEDS 17:51
PROVIDERS: Emergency Medicine; Internal Medicine; ADMIT Internal Medicine
PROC: 0J9K3ZX Drainage of Left Hand Subcutaneous Tissue and Fascia, Percutaneous Approach, Diagnostic (ICD-10-PCS; principal; 2019-06-21)
DX: A40.8 Other streptococcal sepsis (principal); I50.32 Chronic diastolic (congestive) heart failure; I48.20 Chronic atrial fibrillation, unspecified; N17.9 Acute kidney failure, unspecified; L03.115 Cellulitis of right lower limb; L03.116 Cellulitis of left lower limb; I11.0 Hypertensive heart disease with heart failure; I25.10 Atherosclerotic heart disease of native coronary artery without angina pectoris; E78.5 Hyperlipidemia, unspecified; R65.20 Severe sepsis without septic shock; Z79.4 Long term (current) use of insulin; M06.4 Inflammatory polyarthropathy; Z95.5 Presence of coronary angioplasty implant and graft; G89.29 Other chronic pain; M54.9 Dorsalgia, unspecified; E66.01 Morbid (severe) obesity due to excess calories; D63.8 Anemia in other chronic diseases classified elsewhere; D50.9 Iron deficiency anemia, unspecified; Z68.39 Body mass index [BMI] 39.0-39.9, adult; M25.442 Effusion, left hand; E11.51 Type 2 diabetes mellitus with diabetic peripheral angiopathy without gangrene; Z68.38 Body mass index [BMI] 38.0-38.9, adult
CPT/HCPCS: 10030; 36415; 51701; 71046; 76942; 80048; 80053; 80202; 82270; 82728; 82947; 83540; 83550; 83605; 83735; 83880; 84484; 85025; 85027; 85610; 85730; 87040; 87147; 93306; 96361; 96365; 97110; 97163; 97165; 97530; 99285-25; A9270; A9270-GY; C1751; J0690; J0696; J2930; J3370; J7030; J7050; P9046

== ENCOUNTER → 2019-08-18 | Outpatient (CLI) | payer MEDICARE, OTHER ==
[~2019-08-18] MED LIST changes: +ALFUZOSIN HCL10 MG PO; +Ceftriaxon2 GM/50 ML IV; +DIPH12.5EL MT; +FERSU300 PO; +FURO80 PO; +Fentanyl1 EACH TD; +INSDET100 SC; +METO2.5 PO; +METO25ER PO; +MIRALAX17 GM PO; +NOVOLOG FL100 UNIT/1 SC; +OXYC10TA19 PO; +POTA10T PO; +SPIR25 PO; +TRULICITY0.75 MG/0. SC; +Vsl#3 Capsule1 EACH PO
== END | disposition home or self-care (01) ==
DX: E11.621 Type 2 diabetes mellitus with foot ulcer (principal)

== ENCOUNTER 2019-10-03 15:21 | Observation (INO) | payer MEDICARE, OTHER ==
[~2019-10-03] VITALS: Ht 172.7 cm; Wt 127.2 kg
[~2019-10-03 15:21] MED LIST changes: +ALDACTONE25 MG PO; +AMIODARONE HCL200 M1 PO; +ATOR20 PO; +DULO60 PO; +DURAGESIC1 EAC1 TD; +FUROSEMIDE40 MG PO; +HUMALOG100 UNIT/1; +LEVEMIR100 UNIT/1 SC; +OMEGA 3 1,0001 EACH PO; +POTCHL20ER PO; +TRULICITY1.5 MG/0.1 SC
--- NOTE | 2019-10-03 16:40 | NUR ---
10/03/19 Mahamed Abreu See Anesthesia record. History, Chart, Medications and Allergies reviewed before start of procedure. Patient to ENDO 1. MONITOR INTACT WITH CONTINUOUS PULSE OXIMETRY AND INTERMITTENT BP.Bite Block Placed.
--- NOTE | 2019-10-03 17:35 | NUR ---
REPORT GIVEN AND CBG WAS 133 AT 1730. TO PCU WITH RN
--- NOTE | 2019-10-03 19:26 | NUR ---
PT ARRIVED TO THE UNIT VIA STRETCHER, PT IS POST ENDOSCOPY BY DR BERNABE WITH BIOPSY DONE. PT HAD HYPOGLYCEMIA EPISODES WHILE DOING THE PROCEDURE FOUND OUT THAT HE WAS GIVEN HIS INUSLIN SHOT 62U OF LEVIMIR THIS MORNING BEFORE THE PROCEDURE AT [facility] WHERE PT STAYS AT THIS TIME. PT WAS GIVEN TOTAL OF 3AMP OF D5 TO GET HIS BLOOD SUGAR GO UP HIS LAST CBG WAS 123. VITALS HAS BEEN STABLE. AFEBRLIE, 92% ON ROOMAIR, ALERT AND ORIENTED. PT NOW RUNNING WITH LR AT 50MLS/HR. PT ARRIVED IN THE UNIT WITH DRESSINGS ON BILAT LOWER EXT WRAPPED IN [place] AND IS ALSO LEAKING, PASSED ON REPORT TO CHANGE THE DRESSINGS TONIGHT. CALLED [facility] TO FAX PT'S UPDATED MED LISTS WITH LAST DOSE TAKEN RECORDED ON EACH MEDICATIONS, HERB DOCTOR NURSE AWARE. CALLED SISTER AND MADE AWARE OF PT'S SITUATION.
[2019-10-04 03:36] LABS: BASOPHILS ABSOLUTE AUTO 0.07 K/mm3 (0.00-0.23); BASOPHILS PERCENT AUTO 0 % (0-2); EOSINOPHILS ABSOLUTE AUTO 0.14 K/mm3 (0.00-0.68); EOSINOPHILS PERCENT AUTO 1 % (0-6); Hemoglobin 7.4 g/dL (13.5-17.5); IMMATURE GRAN ABSOLUTE AUTO 0.15 K/mm3 (0.00-0.10); IMMATURE GRAN PERCENT AUTO 1 % (0-1); LYMPHOCYTES ABSOLUTE AUTO 0.77 K/mm3 (0.84-5.20); LYMPHOCYTES PERCENT AUTO 4 % (21-46); MONOCYTES ABSOLUTE AUTO 1.22 K/mm3 (0.16-1.47); MONOCYTES PERCENT AUTO 6 % (4-13); Mean Corpuscular HGB 23.6 pg (26.0-34.0); Mean Corpuscular HGB Conc 27.4 g/dL (31.5-36.5); Mean Corpuscular Volume 86 fL (80-100); Mean Platelet Volume 11.5 fL (9.1-12.4); NEUTROPHILS ABSOLUTE AUTO 17.21 K/mm3 (1.96-9.15); NEUTROPHILS PERCENT AUTO 88 % (41-73); NRBC ABSOLUTE 0.04 K/mm3 (0.00-0.02); NRBC Auto 0.2 /100 WBC (0.0-0.2); Platelet Count 330 K/mm3 (150-400); RDW Coefficient Variation 17.8 % (11.7-14.2); RDW Standard Deviation 55.5 fL (35.1-46.3); Red Blood Cell Count 3.14 M/mm3 (4.30-5.90); White Blood Cell Count 19.56 K/mm3 (4.00-11.30)
[2019-10-04 03:50] LABS: Anion Gap 5 mmol/L (6-16); Blood Urea Nitrogen 34 mg/dL (8-24); Bun/Creatinine Ratio 30.9 (12.0-20.0); CO2, Blood 37 mmol/L (21-32); Calcium, Blood 7.8 mg/dL (8.5-10.1); Chloride, Blood 98 mmol/L (98-108); Glomerular Filtration Rate >60 (60-); Glucose, Blood 188 mg/dL (70-99); Potassium, Blood 3.3 mmol/L (3.5-5.5); Sodium, Blood 140 mmol/L (136-145)
--- NOTE | 2019-10-04 05:48 | NUR ---
patient admitted for hypoglycemia status post endoscopy that was supposed to be an outpatient procedure. No concerns overnight, or acute events. The patient's blood glucose level corrected and remain controlled. patient an ice chest pain, chest pressure, or shortness of breath.
[2019-10-04 08:03] LABS: Percent Saturation 8.2 % (20.0-50.0)
[2019-10-04 12:06] LABS: BASOPHILS PERCENT AUTO 0 % (0-2); EOSINOPHILS ABSOLUTE AUTO 0.15 K/mm3 (0.00-0.68); EOSINOPHILS PERCENT AUTO 1 % (0-6); Hematocrit 29.5 % (37.0-53.0); Hemoglobin 8.2 g/dL (13.5-17.5); IMMATURE GRAN PERCENT AUTO 1 % (0-1); LYMPHOCYTES ABSOLUTE AUTO 0.87 K/mm3 (0.84-5.20); LYMPHOCYTES PERCENT AUTO 4 % (21-46); MONOCYTES ABSOLUTE AUTO 1.32 K/mm3 (0.16-1.47); MONOCYTES PERCENT AUTO 6 % (4-13); Mean Corpuscular HGB Conc 27.8 g/dL (31.5-36.5); Mean Corpuscular Volume 87 fL (80-100); Mean Platelet Volume 11.5 fL (9.1-12.4); NEUTROPHILS ABSOLUTE AUTO 19.64 K/mm3 (1.96-9.15); NEUTROPHILS PERCENT AUTO 88 % (41-73); NRBC ABSOLUTE 0.03 K/mm3 (0.00-0.02); NRBC Auto 0.1 /100 WBC (0.0-0.2); Platelet Count 358 K/mm3 (150-400); RDW Coefficient Variation 17.9 % (11.7-14.2); RDW Standard Deviation 56.1 fL (35.1-46.3); Red Blood Cell Count 3.41 M/mm3 (4.30-5.90); White Blood Cell Count 22.28 K/mm3 (4.00-11.30)
[2019-10-04] MEDS ORDERED: FERSU300 PO (12:37)
--- NOTE | 2019-10-04 13:30 | NUR ---
PT DISCHARGE TO [facility], PT'S BLOOD SUGAR WELL CONTROLLED, VITALS HAS BEEN STABLE. NO CONCERNS FOR THE SHIFT, PAIN MEDS GIVEN X2 FOR BACK PAIN AND WAS EFFECTIVE. ALL BELONGINGS SENT WITH PATIENT, [facility] CAME TO LAMINA SEARCHER PT.
== END 2019-10-04 13:17 ==
LOC: ORSCMMR 15:21 → PCU 17:37 → ORSCMMR 17:37 → PCU 17:38
PROVIDERS: Hospitalist; Student in an Organized Health Care Education/Training Program; ADMIT Internal Medicine Gastroenterology
PROC: 0DB68ZZ Excision of Stomach, Via Natural or Artificial Opening Endoscopic (ICD-10-PCS; principal; 2019-10-03 07:30)
DX: B37.81 Candidal esophagitis (principal); K25.9 Gastric ulcer, unspecified as acute or chronic, without hemorrhage or perforation; K31.89 Other diseases of stomach and duodenum; K31.7 Polyp of stomach and duodenum; I11.0 Hypertensive heart disease with heart failure; I50.32 Chronic diastolic (congestive) heart failure; I48.20 Chronic atrial fibrillation, unspecified; E11.649 Type 2 diabetes mellitus with hypoglycemia without coma; E11.51 Type 2 diabetes mellitus with diabetic peripheral angiopathy without gangrene; E78.5 Hyperlipidemia, unspecified; I87.2 Venous insufficiency (chronic) (peripheral); Z79.4 Long term (current) use of insulin; Z79.899 Other long term (current) drug therapy; Z79.01 Long term (current) use of anticoagulants; Z79.02 Long term (current) use of antithrombotics/antiplatelets; Z88.2 Allergy status to sulfonamides; Z88.1 Allergy status to other antibiotic agents; Z88.8 Allergy status to other drugs, medicaments and biological substances; K63.5 Polyp of colon; R19.7 Diarrhea, unspecified; I25.10 Atherosclerotic heart disease of native coronary artery without angina pectoris; G47.33 Obstructive sleep apnea (adult) (pediatric)
CPT/HCPCS: 36415; 80048; 82728; 82947; 83540; 83550; 85025; 88305; 88341; 88342; 96374; 96376; A9270; A9270-GY; G0378; J2370; J2405; J2704; J2916; J7042; J7120